=== PATIENT | female | born 1935 | race Caucasian/White ===

== ENCOUNTER 2019-12-04 18:31 | Inpatient (IN) | payer MEDICARE, SELFPAY ==
--- NOTE | ~2019-12-04 | XR_ITS ---
XR chest 1V portable 12/04/2019 20:36 Indication: Altered mental status. Hypertension. COPD. Procedure: AP view of the chest Comparison: Comparison to multiple prior studies sequentially, with oldest reviewed study dated 04/29. Findings: There is a left shoulder arthroplasty. There are coarse interstitial changes of the lung ba ses. Heart size normal. Chronic left apical pleural thickening. No acute osseous abnormality. No acut e focal pneumonia, edema, pleural effusion or pneumothorax. Partially visualized IVC filter. Impression: 1: Chronic interstitial changes of the lung bases, likely interstitial fibrosis. 2: No acute cardiopulmonary disease. Reviewed, dictated and finalized at location A. Impression: 1: Chronic interstitial changes of the lung bases, likely interstitial fibrosis . 2: No acute cardiopulmonary disease.
--- NOTE | ~2019-12-04 | CT_ITS ---
EXAMINATION: CT brain wo con DATE: 12/04/2019 20:30 INDICATION: Altered mental status TECHNIQUE: Computed tomography (CT) of the head was performed without intravenous contrast. The dose- length product was 605.33 mGy-cm. Automated exposure control and iterative reconstruction technique w ere employed. COMPARISON: CT dated 01/02/2019 FINDINGS: Generalized atrophy. There is chronic right lacunar infarction of the caudate nucleus. Supervisor Painting nadia lacunar infarction of the left lentiform nucleus. There are scattered moderate periventricular an d subcortical white matter changes, most likely related to small vessel ischemic disease (microangiop athy). There is intracranial atherosclerosis. Paranasal sinuses and mastoids are pneumatized. No depr essed skull fractures. Midline sagittal images are unremarkable. IMPRESSION: 1. No acute intracranial abnormality. 2: Chronic bilateral lacunar infarctions. 3: Chronic age-related findings. Reviewed, dictated and finalized at location A.
[2019-12-04 18:13] VITALS: BP 178/88; PULSE 63; RESP 20; TEMP 36.8; O2SAT 99
--- NOTE | 2019-12-04 18:18 | ECG_ITS ---
Measurements Intervals [place] Rate: 63 P: -11 PA: 165 QRS: -62 QRSD: 162 T: 121 QT: 435 QTc: 447 Interpretive Statements SINUS RHYTHM LEFT BUNDLE BRANCH BLOCK BASELINE ARTIFACT- I, II, III, AVR, AVL, AVF, V1 ABNORMAL ECG Electronically Signed On 12-05-2019 7:20:20 CDT by Uriah Richard D.O.
[2019-12-04 18:51] LABS: Basophils Absolute Auto 0.1 K/mm3 (0.0-0.1); Basophils Percent Auto 0.9 % (0.2-1.2); Eosinophils Absolute Auto 0.3 K/mm3 (0-0.3); Eosinophils Percent Auto 3.4 % (0-4.4); Hemoglobin 14.5 g/dL (12.0-15.0); Immature Granulocyte Absolute 0.02 K/mm3 (0.00-0.031); Immature Granulocyte Percent A 0.2 % (0-0.5); Lymphocytes Absolute Auto 1.86 K/mm3 (0.9-3.2); Lymphocytes Percent Auto 20.9 % (18.3-44.2); Mean Corpuscular HGB Conc 33.7 g/dl (32-36); Mean Corpuscular Hemoglobin 32.9 pg (26-34); Mean Corpuscular Volume 97.5 fl (80-100); Mean Platelet Volume 10.7 fl (7.4-10.4); Monocytes Absolute Auto 0.8 K/mm3 (0.1-0.6); Monocytes Percent Auto 8.7 % (2.6-8.5); Neutrophils Absolute Auto 5.9 K/mm3 (1.3-6.7); Neutrophils Percent Auto 65.9 % (45.5-73.1); Platelet Count Result 292 k/mm3 (150-375); Red Blood Count 4.41 M/mm3 (4.2-5.4); White Blood Count 8.9 K/mm3 (4.5-10.0)
[2019-12-04 18:57] LABS: Add Urine Microscopic? YES; Appearance Urine Cloudy (Clear); Bacteria Urine 2+ /hpf; Bilirubin Urine Negative (Negative); Color Urine Yellow (Yellow); Glucose Urine UA Negative (Negative); Ketones Urine Negative (Negative); Leukocyte Esterase Ur 3+ LEU/UL (Negative); Mucus Urine Rare /lpf; Nitrate Urine Negative (Negative); Protein Urine 1+ mg/dL (Negative); Specific Grav Ur 1.013 (1.001-1.035); Squamous Epithelial Cell Urine Rare /hpf (Few); Urobilinogen Urine Negative mg/dL (<2.0); WBC Clumps Urine Present /HPF; WBC Urine >75 /hpf
[2019-12-04 18:58] LABS: Blood Urine Negative (Negative)
--- NOTE | 2019-12-04 19:21 | ED.AMS ---
HPI - Altered Mental Status General Chief Complaint: Altered Mental Status Stated Complaint: AMS/POSSIBLE UTI Time Seen by Provider: 12/04/19 19:08 Source: RN notes reviewed History of Present Illness HPI narrative: Patient presents emergency department from [facility] via EMS for altered mental status. Per the staff the patient does have baseline confusion but is been more confused today as well as combative with the staff. Patient currently sitting in bed stating that she does not want to answer questions but denies any complaints of pain at this time. Per staff patient with no fevers. Patient denies chest pain shortness of breath abdominal pain or nausea vomiting Related Data Allergies Allergy/AdvReac Type Severity Reaction Status Date / Time Sulfa (Sulfonamide Allergy Unknown Verified 05/10/17 07:50 Antibiotics) ADENOSINE Allergy Severe FLUSHED, Uncoded 09/04/17 18:14 SOB, N/V FEELING DURING STRESS TEST Review of Systems Review of Systems: Narrative: Gen.: Denies fevers or chills ENT: Denies congestion Respiratory: Denies shortness of breath or cough CV: Denies chest pain GI: Denies abdominal pain nausea, emesis or diarrhea Musculoskeletal: Denies back pain or muscle pain Neuro: See HPI Skin: Denies rash Except as documented, all other systems reviewed and negative PMFSH Past Medical History Medical History (Updated 12/04/19 @ 20:50 by Brad Alexander DO) COPD (chronic obstructive pulmonary disease) HTN (hypertension) Social History Social History (Updated 12/04/19 @ 19:22 by Brad Alexander DO) Smoking status: Former smoker Alcohol intake: never Gender identity (if verbalized by the patient): Female Exam Narrative: Exam Narrative: APPEARANCE: No acute distress, nontoxic, resting in bed EYES: EOMI, Jerod HEENT: Normocephalic, atraumatic, OMM RESPIRATORY: No respiratory distress Clear to auscultation bilaterally with no rhonchi wheezing or rales. CARDIOVASCULAR: Regular rate and rhythm without murmurs rubs or gallops. ABDOMINAL: Soft, nontender, nondistended, no rebound or guarding MUSCULOSKELETAl: Moves all extremities. No clubbing, cyanosis or edema. NEURO: Awake and alertx 1. Following commands, speech normal, no focal deficits SKIN:: Warm, dry. No rashes lesions or abrasions PSYCHIATRIC: Normal affect/mood, Course Course Emergency Course: Discussed with Dr. Hammond presentation work-up he agrees with admission at this time Discussed with patient and family results of workup and diagnosis. Discussed need for admission. Patient and family understand and agree to current treatment plan Vital Signs Vital signs: Vital Signs Temperature 98.2 F 12/04/19 18:13 Pulse Rate 63 12/04/19 18:13 Respiratory Rate 20 12/04/19 18:13 Blood Pressure 178/88 H 12/04/19 18:13 Pulse Oximetry 99 12/04/19 18:13 Temperature 98.2 F 12/04/19 18:13 Pulse Rate 63 12/04/19 18:13 Respiratory Rate 12/04/19 18:13 Blood Pressure 178/88 H 12/04/19 18:13 Pulse Oximetry 99 12/04/19 18:13 MDM - Altered Mental Status Lab Data Result diagrams: 12/04/19 18:44 12/04/19 19:27 Labs: Lab Results 12/04/19 12/04/19 12/04/19 Range/Units 18:44 18:45 19:27 WBC 8.9 (4.5-10.0) K/mm3 RBC 4.41 (4.2-5.4) M/mm3 Hgb 14.5 (12.0-15.0) g/dL Hct 43.0 (37.0-47.0) % MCV 97.5 (80-100) fl MCH 32.9 (26-34) pg MCHC 33.7 (32-36) g/dl RDW 14.0 (11.5-14.5) % Plt Count 292 (150-375) k/mm3 MPV 10.7 H (7.4-10.4) fl Immature Gran % (Auto) 0.2 (0-0.5) % Neut % (Auto) 65.9 (45.5-73.1) % Lymph % (Auto) 20.9 (18.3-44.2) % Wheeler % (Auto) 8.7 H (2.6-8.5) % Eos % (Auto) 3.4 (0-4.4) % Baso % (Auto) 0.9 (0.2-1.2) % Lymph # (Auto) 1.86 (0.9-3.2) K/mm3 Wheeler # (Auto) 0.8 H (0.1-0.6) K/mm3 Eos # (Auto) 0.3 (0-0.3) K/mm3 Baso # (Auto) 0.1 (0.0-0.1) K/mm3 Abs Immat Gran (
[2019-12-04 19:44] LABS: INR 2.5; Prothrombin Time 26.7 Seconds (11.1-14.7)
[2019-12-04 19:45] LABS: Lactic Acid Reflex 0.8 mmol/L (0.7-2.1); Partial Thromboplastin Time 59.1 SECONDS (22.3-36.8)
[2019-12-04 19:46] LABS: Blood Urea Nitrogen 17 mg/dL (7-17); Calcium 9.1 mg/dL (8.4-10.2); Carbon Dioxide 27 mmol/L (22-30); Chloride 103 mmol/L (98-107); Estimated Glomerular Filt Rate > 60; Glucose 94 mg/dL (65-105); Potassium 4.2 mmol/L (3.4-5.0); Sodium 136 mmol/L (137-145)
[2019-12-04 21:40] VITALS: BP 105/75; PULSE 65; RESP 20; TEMP 36.6; O2SAT 90; BMI 18.7
--- NOTE | 2019-12-04 21:40 | ADMGEN ---
This patient, Kinjal Anderson, was admitted to [facility] Surg Room 315-01. Patient/family oriented to hospital policies and general routines including ID bracelet, bed and alarms, visiting hours, pain management, procedures, bathroom and other care routines, personal items, smoking policy, room service/diet, and visiting hours. Valuables list has been completed. Information on how to activate the Rapid Response Team has been discussed. Patient/Family are encouraged to report perceived risks to care and to ask questions if they do not understand what they are told or what they should do.
[2019-12-04 21:58] VITALS: BP 107/68; PULSE 71; RESP 22; O2SAT 96
--- NOTE | 2019-12-04 21:58 | PM.IMHP ---
H&P: HPI History of Present Illness Chief complaint: UTI, metabolic encephalopathy Narrative: This is an 84 year old demented female who presented to the hospital from [facility] secondary to acute altered mental status and combative behavior. The patient was found to be more confused than normal by halfway staff and combative. On arrival to the hospital the patient was found to have an abnormal urinalysis although she denies any urinary symptoms. She is oriented to herself and place and states she does not want to answer any questions. The patient denies any pain but refuses to answer any other questions. No other history is obtainable from the patient. Review of Systems Review of Systems: All systems reviewed & are unremarkable except as noted in HPI and below PMFSH Past Medical History Medical History COPD (chronic obstructive pulmonary disease) HTN (hypertension) Hypothyroidism Family History Family History Other Unknown family medical history Social History Social History Smoking status: Unknown if ever smoked Alcohol intake: unknown Substance use: unknown Gender identity (if verbalized by the patient): Female Spiritual care concerns: No Comments Past surgical history is unknown. Meds Home Medications and Allergies Home Medications Medication Instructions Recorded Confirmed Type Lactobacillus acidoph-L.bulgar 1 tablet PO DAILY 12/04/19 12/05/19 History [Floranex] acetaminophen [Tylenol] 650 mg PO Q4H PRN 12/04/19 12/05/19 History atorvastatin 40 mg PO QPM 12/04/19 12/05/19 History fluoxetine 20 mg PO DAILY 12/04/19 12/05/19 History lorazepam 0.5 mg PO BID 12/04/19 12/05/19 History ciprofloxacin HCl [Cipro] 250 mg PO DAILY 12/05/19 12/05/19 History ferrous sulfate [Iron (ferrous 325 mg PO DAILY 12/05/19 12/05/19 History sulfate)] levothyroxine 125 mcg PO DAILY 12/05/19 12/05/19 History loperamide 2 mg PO PRN PRN 12/05/19 12/05/19 History magnesium hydroxide [Milk of 30 ml PO BID PRN 12/05/19 12/05/19 History Magnesia] meclizine 25 mg PO TID 12/05/19 12/05/19 History metoprolol tartrate 25 mg PO BID 12/05/19 12/05/19 History multivitamin,fv-daia-udmrunww 1 tablet PO DAILY 12/05/19 12/05/19 History ofloxacin 1 - 2 drp OPHTHALMIC (EYE) QID 12/05/19 12/05/19 History pantoprazole 40 mg PO DAILY 12/05/19 12/05/19 History rivaroxaban [Xarelto] 20 mg PO DAILY 12/05/19 12/05/19 History Allergies Allergy/AdvReac Type Severity Reaction Status Date / Time adenosine Allergy Severe Dyspnea / Verified 12/05/19 01:02 SOB Sulfa (Sulfonamide Allergy Unknown Unknown Verified 12/05/19 01:02 Antibiotics) Vital Signs Vital Signs - 24 hr 12/04/19 18:13 Temperature 36.8 C Pulse Rate 63 Respiratory Rate 20 Blood Pressure 178/88 H Pulse Oximetry 99 Exam Const: General: no acute distress, alert and awake Nutritional Appearance: well nourished Orientation/consciousness: oriented to person and oriented to place HENMT: Head: normal to inspection General nose exam: Normal external nose present Face and sinus: normal facial exam Mouth: Yes Normal oral and palatal mucosa present and Yes oropharynx normal Eyes: Pupils: Equal, round and reactive pupils present EOM: EOMs intact bilaterally Neck: Neck: supple and no JVD Thyroid: thyroid normal Lymphatic: lymphadenopathy not noted Resp: Effort & Inspection: normal respiratory effort Auscultation: clear to auscultation bilaterally Cardio: Rate: regular rate Rhythm: regular rhythm Heart sounds: Murmur heart sound present systolic GI: Inspection: normal to inspection Auscultation: normal bowel sounds Skin: General skin exam: normal color and no rashes or lesions noted Neuro: General: oriented to person and oriented to place Cranial nerves: Yes
[2019-12-04] MEDS: SODIUM CHLORIDE 0.9% IV 1,000 ML 80 ML IV CONT (23:06)
--- NOTE | 2019-12-05 04:55 | PC.NURSE ---
[id number] Attempted to perform an assessment but the patient refused. Patient called staff names and was combative when we would got closer to her.
[2019-12-05] MEDS: LEVOTHYROXINE SODIUM 125 MCG TABLET PO (05:58)
[2019-12-05 06:55] LABS: Basophils Absolute Auto 0.1 K/mm3 (0.0-0.1); Basophils Percent Auto 0.9 % (0.2-1.2); Eosinophils Absolute Auto 0.3 K/mm3 (0-0.3); Eosinophils Percent Auto 4.2 % (0-4.4); Hematocrit 41.1 % (37.0-47.0); Hemoglobin 13.5 g/dL (12.0-15.0); Immature Granulocyte Absolute 0.02 K/mm3 (0.00-0.031); Immature Granulocyte Percent A 0.3 % (0-0.5); Lymphocytes Absolute Auto 1.18 K/mm3 (0.9-3.2); Lymphocytes Percent Auto 17.1 % (18.3-44.2); Mean Corpuscular HGB Conc 32.8 g/dl (32-36); Mean Corpuscular Hemoglobin 32.6 pg (26-34); Mean Corpuscular Volume 99.3 fl (80-100); Mean Platelet Volume 10.3 fl (7.4-10.4); Monocytes Absolute Auto 0.6 K/mm3 (0.1-0.6); Neutrophils Absolute Auto 4.8 K/mm3 (1.3-6.7); Neutrophils Percent Auto 69.5 % (45.5-73.1); Platelet Count Result 247 k/mm3 (150-375); Red Blood Count 4.14 M/mm3 (4.2-5.4); Red Cell Distribution Width 13.6 % (11.5-14.5); White Blood Count 6.9 K/mm3 (4.5-10.0)
[2019-12-05 07:06] LABS: Blood Urea Nitrogen 15 mg/dL (7-17); Calcium 8.7 mg/dL (8.4-10.2); Carbon Dioxide 24 mmol/L (22-30); Chloride 106 mmol/L (98-107); Estimated CRCL calculation 49 ml/min; Estimated Glomerular Filt Rate > 60; Glucose 90 mg/dL (65-105); Potassium 3.9 mmol/L (3.4-5.0); Sodium 136 mmol/L (137-145)
[2019-12-05 08:14] LABS: Folic Acid > 20.0 ng/mL (2.76->20)
[2019-12-05] MEDS: OLANZapine 10 MG INJ VIAL 2.5 MG IM ×2 (11:18→17:27)
[2019-12-05] MEDS: LORazepam 0.5 MG TABLET PO (13:29)
[2019-12-05] MEDS: WATER, STERILE FOR INJECTION 10 ML VIAL XX ×2 (13:30→17:28)
[2019-12-05 14:00] VITALS: BP 165/87; PULSE 84; RESP 18; TEMP 37.2; O2SAT 94
[2019-12-05] MEDS: FLUoxetine HCL 20 MG CAPSULE PO (15:10)
[2019-12-05] MEDS: ACETAMINOPHEN 325 MG TABLET 650 MG PO (15:20)
--- NOTE | 2019-12-05 16:07 | PM.IMPN ---
Progress Note: A&P Assessment and Plan (1) Encephalopathy acute: Code(s): G93.40 - Encephalopathy, unspecified Status: Acute Assessment and Plan: 12/05/19 16:07 Patient 84-year-old female a resident of nursing with baseline dementia apparently patient was agitated combative and more confused was sent to emergency department for further evaluation patient still is quite confused uncooperative does not provide any history, does not want to be examined, and been aggressive. Patient is found to UTI this may have worsen of her confusion and agitation, patient started Rocephin will continue and follow on urine culture and sensitivity, once patient is clinically stable cooperative will have a PT OT evaluate the patient, currently patient is with sitter (2) Acute UTI: Code(s): N39.0 - Urinary tract infection, site not specified Status: Acute Assessment and Plan: Will start the patient on Rocephin will follow-up on urine culture and sensitivity (3) COPD (chronic obstructive pulmonary disease): Qualifiers: COPD type: unspecified COPD Qualified Code(s): J44.9 - Chronic obstructive pulmonary disease, unspecified Code(s): J44.9 - Chronic obstructive pulmonary disease, unspecified Status: Chronic Assessment and Plan: Clinically stable will continue home regimen Subjective Date/time seen: 12/05/19 16:07 Patient 84-year-old female a resident of nursing with baseline dementia apparently patient was agitated combative and more confused was sent to emergency department for further evaluation patient still is quite confused uncooperative does not provide any history, does not want to be examined, and been aggressive. Patient is found to UTI this may have worsen of her confusion and agitation, patient started Rocephin will continue and follow on urine culture and sensitivity, once patient is clinically stable cooperative will have a PT OT evaluate the patient, currently patient is with sitter Review of Systems Review of Systems: ROS unobtainable: Yes unobtainable due to medical condition Exam Narrative: Exam Narrative: Patient is not very cooperative Const: General: no acute distress and uncomfortable HENMT: General nose exam: Normal nares present Eyes: Sclera: sclerae normal Neck: Other: There is no retraction Resp: Effort & Inspection: normal respiratory effort GI: Other: Not distended Skin: General skin exam: normal color Neuro: Other: Patient is confused and combative Extrem: General: normal to inspection Psych: Affect: Hostile affect present Attitude: Belligerent attititude/behavior present Objective Data Vital Signs Vital Signs: Vital Signs - 24 hr 12/04/19 18:13 12/04/19 21:40 12/04/19 21:58 Temperature 98.2 F 97.8 F Pulse Rate 63 65 71 Respiratory Rate 20 20 22 H Blood Pressure 178/88 H 105/75 107/68 Pulse Oximetry 99 90 96 12/05/19 14:00 Temperature 99.0 F Pulse Rate 84 Respiratory Rate 18 Blood Pressure 165/87 H Pulse Oximetry 94 Intake/Output Intake/Output: Intake & Output 12/02/19 12/03/19 12/04/19 12/05/19 23:59 23:59 23:59 23:59 Intake Total 50 Balance 50 Meds/Results Medications: Active Medications Generic Name Dose Route Start Last Admin Trade Name Freq PRN Reason Stop Dose Admin Acetaminophen 650 mg 12/05/19 14:58 12/05/19 15:20 Tylenol Tablet PO 650 mg Q6H PRN Administration Mild Pain (1-3) or Fever Atorvastatin Calcium 40 mg 12/04/19 22:20 12/05/19 03:11 Lipitor PO Not Given HS WILLIAM Fluoxetine HCl 20 mg 12/05/19 09:00 12/05/19 15:10 Prozac PO 20 mg DAILY WILLIAM Administration Ceftriaxone Sodium/Dextrose 1 gm in 50 mls @ 100 mls/hr 12/05/19 21:00 Rocephin 1 Gm/D5w 50 Ml IVPB Q24H WILLIAM Sodium Chloride 1,000 mls @ 80 mls/hr 12/04/19 20:50 12/05/19 13:31 Normal Saline Iv IV CONT Not Given .[id number] WILLIAM Lactobacillus Acidophilus 1 tabl
[2019-12-05 20:30] VITALS: PULSE 83; RESP 18; O2SAT 92
[2019-12-05 22:00] VITALS: BP 157/98; PULSE 83; RESP 18; TEMP 37.1; O2SAT 92
[2019-12-06 06:00] VITALS: BP 171/88; PULSE 84; RESP 18; TEMP 37.2; O2SAT 91
[2019-12-06] MEDS: LEVOTHYROXINE SODIUM 125 MCG TABLET PO (06:13)
[2019-12-06 06:29] LABS: Hematocrit 40.4 % (37.0-47.0); Hemoglobin 13.2 g/dL (12.0-15.0); Mean Corpuscular HGB Conc 32.7 g/dl (32-36); Mean Corpuscular Volume 98.1 fl (80-100); Mean Platelet Volume 10.3 fl (7.4-10.4); Platelet Count Result 265 k/mm3 (150-375); Red Blood Count 4.12 M/mm3 (4.2-5.4); Red Cell Distribution Width 13.5 % (11.5-14.5); White Blood Count 7.2 K/mm3 (4.5-10.0)
[2019-12-06 06:40] LABS: Blood Urea Nitrogen 14 mg/dL (7-17); Calcium 9.1 mg/dL (8.4-10.2); Carbon Dioxide 25 mmol/L (22-30); Chloride 107 mmol/L (98-107); Estimated CRCL calculation 49 ml/min; Estimated Glomerular Filt Rate > 60; Glucose 84 mg/dL (65-105); Potassium 3.7 mmol/L (3.4-5.0); Sodium 138 mmol/L (137-145)
[2019-12-06] MEDS: LORazepam 0.5 MG TABLET PO ×3 (07:53→19:40)
[2019-12-06] MEDS: FLUoxetine HCL 20 MG CAPSULE PO (07:54)
[2019-12-06] MEDS: ACIDOPHILUS/BULGARICUS CHEWABLE TABLET 1 TABLET PO (07:54)
[2019-12-06] MEDS: FERROUS SULFATE 324 MG TABLET PO (07:54)
[2019-12-06 07:55] VITALS: PULSE 84
[2019-12-06] MEDS: METOPROLOL TARTRATE 25 MG TABLET PO ×2 (07:55→21:18)
[2019-12-06] MEDS: PANTOPRAZOLE 40 MG TABLET PO (07:55)
[2019-12-06] MEDS: RIVAROXABAN 20 MG TABLET PO (07:55)
[2019-12-06] MEDS: THERAPEUTIC MULTIVITAMINS/MINERALS TAB (*BKC) 1 TABLET PO (07:55)
[2019-12-06] MEDS: SODIUM CHLORIDE 0.9% IV 1,000 ML 80 ML IV CONT ×2 (09:53→23:25)
[2019-12-06] MEDS: ACETAMINOPHEN 325 MG TABLET 650 MG PO (13:37)
[2019-12-06 13:49] LABS: SARS-CoV-2 RNA PCR Negative
[2019-12-06 14:00] VITALS: BP 163/77; PULSE 68; RESP 20; TEMP 37.4; O2SAT 98
--- NOTE | 2019-12-06 16:33 | PM.IMPN ---
Progress Note: A&P Assessment and Plan (1) Encephalopathy acute: Code(s): G93.40 - Encephalopathy, unspecified Status: Acute Assessment and Plan: 12/06/19 16:33 Patient 84-year-old female a resident of nursing with baseline dementia apparently patient was agitated combative and more confused was sent to emergency department for further evaluation patient still is quite confused uncooperative does not provide any history, does not want to be examined, and been aggressive. Patient is found to UTI this may have worsen of her confusion and agitation, patient was started on Rocephin, urine culture is growing E coli sensitive to Rocephin will continue, still is quite agitated uncooperative and does not want to be examined. (2) Acute UTI: Code(s): N39.0 - Urinary tract infection, site not specified Status: Acute Assessment and Plan: Will start the patient on Rocephin will follow-up on urine culture and sensitivity plan is above (3) COPD (chronic obstructive pulmonary disease): Qualifiers: COPD type: unspecified COPD Qualified Code(s): J44.9 - Chronic obstructive pulmonary disease, unspecified Code(s): J44.9 - Chronic obstructive pulmonary disease, unspecified Status: Chronic Assessment and Plan: Clinically stable will continue home regimen Subjective Date/time seen: 12/06/19 16:33 Patient 84-year-old female a resident of nursing with baseline dementia apparently patient was agitated combative and more confused was sent to emergency department for further evaluation patient still is quite confused uncooperative does not provide any history, does not want to be examined, and been aggressive. Patient is found to UTI this may have worsen of her confusion and agitation, patient was started on Rocephin, urine culture is growing E coli sensitive to Rocephin will continue, still is quite agitated uncooperative and does not want to be examined. Review of Systems Review of Systems: ROS unobtainable: Yes unobtainable due to medical condition Exam Narrative: Exam Narrative: Elderly frail Const: General: no acute distress and uncomfortable HENMT: General nose exam: Normal nares present Eyes: Sclera: sclerae normal Neck: Other: No retraction Resp: Effort & Inspection: normal respiratory effort GI: Other: Not distended Skin: General skin exam: normal color Neuro: Other: Patient is quite confused and agitated Extrem: General: normal to inspection Psych: Affect: Hostile affect present Attitude: Belligerent attititude/behavior present Objective Data Vital Signs Vital Signs: Vital Signs - 24 hr 12/05/19 20:30 12/05/19 22:00 12/06/19 06:00 Temperature 98.7 F 98.9 F Pulse Rate 83 83 84 Respiratory Rate 18 18 18 Blood Pressure 157/98 H 171/88 H Pulse Oximetry 92 92 91 12/06/19 07:55 12/06/19 14:00 Temperature 99.4 F Pulse Rate 84 68 Respiratory Rate 20 Blood Pressure 163/77 H Pulse Oximetry 98 Intake/Output Intake/Output: Intake & Output 12/03/19 12/04/19 12/05/19 12/06/19 23:59 23:59 23:59 23:59 Intake Total 50 1250 290 Output Total 1100 350 Balance 50 150 -60 Meds/Results Medications: Active Medications Generic Name Dose Route Start Last Admin Trade Name Freq PRN Reason Stop Dose Admin Acetaminophen 650 mg 12/05/19 14:58 12/06/19 13:37 Tylenol Tablet PO 650 mg Q6H PRN Administration Mild Pain (1-3) or Fever Atorvastatin Calcium 40 mg 12/04/19 22:20 12/06/19 07:24 Lipitor PO Not Given HS WILLIAM Ferrous Sulfate 324 mg 12/06/19 09:00 12/06/19 07:54 Ferrous Sulfate PO 324 mg DAILY WILLIAM Administration Fluoxetine HCl 20 mg 12/05/19 09:00 12/06/19 07:54 Prozac PO 20 mg DAILY WILLIAM Administration Ceftriaxone Sodium/Dextrose 1 gm in 50 mls @ 100 mls/hr 12/05/19 21:00 12/06/19 07:24 Rocephin 1 Gm/D5w 50 Ml IVPB Not Given Q24H WILLIAM Sodium Chloride 1,000 mls @ 80 m
[2019-12-06 21:18] VITALS: PULSE 64
[2019-12-06] MEDS: ATORVASTATIN 40 MG TABLET PO (21:18)
[2019-12-07 06:00] VITALS: BP 160/78; PULSE 73; RESP 18; TEMP 36.4; O2SAT 93
[2019-12-07] MEDS: LEVOTHYROXINE SODIUM 125 MCG TABLET PO (06:08)
[2019-12-07 14:00] VITALS: BP 148/95; PULSE 65; RESP 18; TEMP 36.7; O2SAT 94
[2019-12-07] MEDS: LORazepam 0.5 MG TABLET PO ×2 (14:24→20:08)
[2019-12-07] MEDS: ACETAMINOPHEN 325 MG TABLET 650 MG PO (14:24)
[2019-12-07 14:26] LABS: Hematocrit 30.4 % (37.0-47.0); Mean Corpuscular HGB Conc 29.6 g/dl (32-36); Mean Corpuscular Hemoglobin 32.8 pg (26-34); Mean Corpuscular Volume 110.9 fl (80-100); Mean Platelet Volume 10.7 fl (7.4-10.4); Platelet Count Result 172 k/mm3 (150-375); Red Blood Count 2.74 M/mm3 (4.2-5.4); Red Cell Distribution Width 13.8 % (11.5-14.5); White Blood Count 5.3 K/mm3 (4.5-10.0)
[2019-12-07] MEDS: ACIDOPHILUS/BULGARICUS CHEWABLE TABLET 1 TABLET PO (14:26)
[2019-12-07] MEDS: FLUoxetine HCL 20 MG CAPSULE PO (14:27)
[2019-12-07] MEDS: MECLIZINE HCL 25 MG TABLET PO (14:28)
[2019-12-07] MEDS: SODIUM CHLORIDE 0.9% IV 1,000 ML 80 ML IV CONT (14:45)
--- NOTE | 2019-12-07 16:40 | PM.IMPN ---
Progress Note: A&P Assessment and Plan (1) Encephalopathy acute: Code(s): G93.40 - Encephalopathy, unspecified Status: Acute Assessment and Plan: 12/07/19 16:40 Patient 84-year-old female a resident of nursing with baseline dementia apparently patient was agitated combative and more confused was sent to emergency department for further evaluation patient still is quite confused uncooperative does not provide any history, does not want to be examined, and been aggressive. Patient is found to UTI this may have worsen of her confusion and agitation, patient was started on Rocephin, urine culture is growing E coli sensitive to Rocephin will continue, still is quite agitated uncooperative and does not want to be examined. If her symptoms do not able by Monday family may consider comfort care for the patient (2) Acute UTI: Code(s): N39.0 - Urinary tract infection, site not specified Status: Acute Assessment and Plan: Will start the patient on Rocephin will follow-up on urine culture and sensitivity plan is above (3) COPD (chronic obstructive pulmonary disease): Qualifiers: COPD type: unspecified COPD Qualified Code(s): J44.9 - Chronic obstructive pulmonary disease, unspecified Code(s): J44.9 - Chronic obstructive pulmonary disease, unspecified Status: Chronic Assessment and Plan: Clinically stable will continue home regimen Subjective Date/time seen: 12/07/19 16:40 Patient 84-year-old female a resident of nursing with baseline dementia apparently patient was agitated combative and more confused was sent to emergency department for further evaluation patient still is quite confused uncooperative does not provide any history, does not want to be examined, and been aggressive. Patient is found to UTI this may have worsen of her confusion and agitation, patient was started on Rocephin, urine culture is growing E coli sensitive to Rocephin will continue, still is quite agitated uncooperative and does not want to be examined. If her symptoms do not able by Monday family may consider comfort care for the patient Review of Systems Review of Systems: All systems reviewed & are unremarkable except as noted in HPI and below Exam Narrative: Exam Narrative: Patient refused to be examined Const: General: no acute distress and uncomfortable HENMT: General nose exam: Normal nares present Eyes: General: appearance normal, both eyes and all related structures Sclera: sclerae normal Neck: Other: No retraction Resp: Effort & Inspection: normal respiratory effort GI: Other: Not distended Skin: General skin exam: normal color Neuro: Other: Patient is quite confused Extrem: General: normal to inspection Psych: Affect: Hostile affect present Attitude: Belligerent attititude/behavior present Objective Data Vital Signs Vital Signs: Vital Signs - 24 hr 12/06/19 21:18 12/07/19 06:00 12/07/19 14:00 Temperature 97.5 F L 98.1 F Pulse Rate 64 73 65 Respiratory Rate 18 18 Blood Pressure 160/78 H 148/95 H Pulse Oximetry 93 94 Intake/Output Intake/Output: Intake & Output 12/04/19 12/05/19 12/06/19 12/07/19 23:59 23:59 23:59 23:59 Intake Total 50 1250 1340 1200 Output Total 1100 350 550 Balance 50 150 990 650 Meds/Results Medications: Active Medications Generic Name Dose Route Start Last Admin Trade Name Freq PRN Reason Stop Dose Admin Acetaminophen 650 mg 12/05/19 14:58 12/07/19 14:24 Tylenol Tablet PO 650 mg Q6H PRN Administration Mild Pain (1-3) or Fever Atorvastatin Calcium 40 mg 12/04/19 22:20 12/06/19 21:18 Lipitor PO 40 mg HS WILLIAM Administration Ferrous Sulfate 324 mg 12/06/19 09:00 12/06/19 07:54 Ferrous Sulfate PO 324 mg DAILY WILLIAM Administration Fluoxetine HCl 20 mg 12/05/19 09:00 12/07/19 14:27 Prozac PO 20 mg DAILY WILLIAM Administration Ceftriaxone Sodium/Dextrose 1 gm in 50 mls @
[2019-12-07 18:11] LABS: Blood Urea Nitrogen 17 mg/dL (7-17); Calcium 8.3 mg/dL (8.4-10.2); Carbon Dioxide 21 mmol/L (22-30); Chloride 108 mmol/L (98-107); Estimated CRCL calculation 49 ml/min; Estimated Glomerular Filt Rate > 60; Glucose 103 mg/dL (65-105); Sodium 140 mmol/L (137-145)
[2019-12-07] MEDS: RIVAROXABAN 20 MG TABLET PO (18:18)
--- NOTE | 2019-12-07 18:58 | PC.NURSE ---
Pt's family states that Jany is the closest daughter and is the one we should contact at [phone]. She will disseminate the info. She is the medical POA. The daughter Alice is out of state and is the financial POA.
--- NOTE | 2019-12-07 19:27 | PC.NURSE ---
When pt awoke, she was combative as she has been during her stay with us. However, she started stating that she wanted to , to stop messing with her, to leave her alone to let her , etc. These statements have continued over the last three hours. MD aware. Pt has sitter with her each shift. Will continue to monitor.
[2019-12-07 20:06] VITALS: PULSE 58
[2019-12-07] MEDS: METOPROLOL TARTRATE 25 MG TABLET PO (20:06)
[2019-12-07] MEDS: ATORVASTATIN 40 MG TABLET PO (20:08)
[2019-12-07 22:00] VITALS: BP 136/51; PULSE 58; RESP 18; TEMP 36.4; O2SAT 91
[2019-12-08] MEDS: SODIUM CHLORIDE 0.9% IV 1,000 ML 80 ML IV CONT ×2 (02:30→14:34)
[2019-12-08 06:00] VITALS: BP 153/68; PULSE 56; RESP 18; TEMP 36.9; O2SAT 95
[2019-12-08] MEDS: LEVOTHYROXINE SODIUM 125 MCG TABLET PO (06:40)
[2019-12-08 06:43] LABS: Hematocrit 39.5 % (37.0-47.0); Hemoglobin 12.9 g/dL (12.0-15.0); Mean Corpuscular HGB Conc 32.7 g/dl (32-36); Mean Corpuscular Hemoglobin 32.3 pg (26-34); Mean Corpuscular Volume 98.8 fl (80-100); Mean Platelet Volume 9.7 fl (7.4-10.4); Platelet Count Result 237 k/mm3 (150-375); Red Cell Distribution Width 13.6 % (11.5-14.5); White Blood Count 7.6 K/mm3 (4.5-10.0)
[2019-12-08 07:02] LABS: Blood Urea Nitrogen 13 mg/dL (7-17); Carbon Dioxide 18 mmol/L (22-30); Chloride 113 mmol/L (98-107); Estimated CRCL calculation 49 ml/min; Estimated Glomerular Filt Rate > 60; Glucose 94 mg/dL (65-105); Potassium 3.5 mmol/L (3.4-5.0); Sodium 138 mmol/L (137-145)
[2019-12-08] MEDS: POTASSIUM CHLORIDE 20 MEQ TABLET 40 MEQ PO (09:46)
[2019-12-08] MEDS: ACIDOPHILUS/BULGARICUS CHEWABLE TABLET 1 TABLET PO (09:47)
[2019-12-08] MEDS: FERROUS SULFATE 324 MG TABLET PO (09:47)
[2019-12-08] MEDS: FLUoxetine HCL 20 MG CAPSULE PO (09:47)
[2019-12-08 09:48] VITALS: PULSE 77
[2019-12-08] MEDS: METOPROLOL TARTRATE 25 MG TABLET PO ×2 (09:48→21:00)
[2019-12-08] MEDS: PANTOPRAZOLE 40 MG TABLET PO (10:08)
[2019-12-08] MEDS: OFLOXACIN 0.3% OP SOLN 5 ML BTL EACH EYE ×4 (10:08→21:35)
[2019-12-08] MEDS: THERAPEUTIC MULTIVITAMINS/MINERALS TAB (*BKC) 1 TABLET PO (10:08)
[2019-12-08 14:00] VITALS: BP 154/72; PULSE 67; RESP 24; TEMP 36.8; O2SAT 96
--- NOTE | 2019-12-08 14:12 | PM.IMPN ---
Progress Note: A&P Assessment and Plan (1) Encephalopathy acute: Code(s): G93.40 - Encephalopathy, unspecified Status: Acute Assessment and Plan: 12/08/19 14:12 Patient 84-year-old female a resident of nursing with baseline dementia apparently patient was agitated combative and more confused was sent to emergency department for further evaluation patient still is quite confused uncooperative does not provide any history, does not want to be examined, and been aggressive. Patient is found to UTI this may have worsen of her confusion and agitation, patient was started on Rocephin, urine culture is growing E coli sensitive to Rocephin will continue, today still is quite agitated and uncooperative but answers few questions, now agreeable to brief exam, denies any abdominal pain nausea or vomiting fever or chills. If her symptoms do not improve by Monday family may consider comfort care for the patient (2) Acute UTI: Code(s): N39.0 - Urinary tract infection, site not specified Status: Acute Assessment and Plan: Will start the patient on Rocephin will follow-up on urine culture and sensitivity plan is above (3) COPD (chronic obstructive pulmonary disease): Qualifiers: COPD type: unspecified COPD Qualified Code(s): J44.9 - Chronic obstructive pulmonary disease, unspecified Code(s): J44.9 - Chronic obstructive pulmonary disease, unspecified Status: Chronic Assessment and Plan: Clinically stable will continue home regimen Additional Plan Date of service was 12/04/2019 at 21:30 hrs. Subjective Date/time seen: 12/08/19 14:12 Patient 84-year-old female a resident of nursing with baseline dementia apparently patient was agitated combative and more confused was sent to emergency department for further evaluation patient still is quite confused uncooperative does not provide any history, does not want to be examined, and been aggressive. Patient is found to UTI this may have worsen of her confusion and agitation, patient was started on Rocephin, urine culture is growing E coli sensitive to Rocephin will continue, today still is quite agitated and uncooperative but answers few questions, now agreeable to brief exam, denies any abdominal pain nausea or vomiting fever or chills. If her symptoms do not improve by Monday family may consider comfort care for the patient Review of Systems Review of Systems: All systems reviewed & are unremarkable except as noted in HPI and below Exam Narrative: Exam Narrative: Elderly frail appears chronically ill Const: General: no acute distress HENMT: General nose exam: Normal nares present Eyes: Sclera: sclerae normal Neck: Other: No retraction Resp: Effort & Inspection: normal respiratory effort Auscultation: clear to auscultation bilaterally Cardio: Rate: regular rate Rhythm: regular rhythm GI: Auscultation: normal bowel sounds Skin: General skin exam: normal color Neuro: Other: Patient still quite confused Extrem: General: normal to inspection Psych: Affect: Hostile affect present Attitude: Belligerent attititude/behavior present Objective Data Vital Signs Vital Signs: Vital Signs - 24 hr 12/07/19 20:06 12/07/19 22:00 12/08/19 06:00 Temperature 97.6 F 98.5 F Pulse Rate 58 L 58 L 56 L Respiratory Rate 18 18 Blood Pressure 136/51 L 153/68 H Pulse Oximetry 91 95 12/08/19 09:48 Temperature Pulse Rate 77 Respiratory Rate Blood Pressure Pulse Oximetry Intake/Output Intake/Output: Intake & Output 12/05/19 12/06/19 12/07/19 12/08/19 23:59 23:59 23:59 23:59 Intake Total 1250 1340 1560 1350 Output Total 1100 350 550 Balance 884 092 0017 1350 Meds/Results Medications: Active Medications Generic Name Dose Route Start Last Admin Trade Name Freq PRN Reason Stop Dose Admin Acetaminophen 650 mg 12/05/19 14:58 12/07/19 14:24 Tylenol Tablet PO 650 mg Q6H PRN Administration
[2019-12-08] MEDS: MECLIZINE HCL 25 MG TABLET PO ×2 (14:36→17:06)
[2019-12-08] MEDS: LORazepam 0.5 MG TABLET PO ×2 (17:06→21:01)
[2019-12-08] MEDS: RIVAROXABAN 20 MG TABLET PO (17:07)
[2019-12-08 21:00] VITALS: PULSE 66
[2019-12-08] MEDS: ATORVASTATIN 40 MG TABLET PO (21:00)
[2019-12-08 22:00] VITALS: BP 178/88; PULSE 68; RESP 18; TEMP 36.8; O2SAT 95
[2019-12-09] MEDS: SODIUM CHLORIDE 0.9% IV 1,000 ML 80 ML IV CONT ×3 (03:09→18:18)
[2019-12-09 06:00] VITALS: BP 185/86; PULSE 68; RESP 16; TEMP 36.6; O2SAT 91
[2019-12-09] MEDS: LEVOTHYROXINE SODIUM 125 MCG TABLET PO (06:02)
[2019-12-09 07:59] LABS: Hemoglobin 15.1 g/dL (12.0-15.0); Mean Corpuscular HGB Conc 32.8 g/dl (32-36); Mean Corpuscular Hemoglobin 32.6 pg (26-34); Mean Corpuscular Volume 99.4 fl (80-100); Mean Platelet Volume 10.1 fl (7.4-10.4); Platelet Count Result 236 k/mm3 (150-375); Red Blood Count 4.63 M/mm3 (4.2-5.4); Red Cell Distribution Width 13.9 % (11.5-14.5); White Blood Count 9.9 K/mm3 (4.5-10.0)
[2019-12-09] MEDS: FERROUS SULFATE 324 MG TABLET PO (07:59)
[2019-12-09] MEDS: ACIDOPHILUS/BULGARICUS CHEWABLE TABLET 1 TABLET PO (07:59)
[2019-12-09 08:00] VITALS: PULSE 68; RESP 16; O2SAT 91
[2019-12-09] MEDS: METOPROLOL TARTRATE 25 MG TABLET PO ×2 (08:00→20:14)
[2019-12-09] MEDS: THERAPEUTIC MULTIVITAMINS/MINERALS TAB (*BKC) 1 TABLET PO (08:00)
[2019-12-09] MEDS: FLUoxetine HCL 20 MG CAPSULE PO (08:00)
[2019-12-09] MEDS: PANTOPRAZOLE 40 MG TABLET PO (08:00)
[2019-12-09] MEDS: OFLOXACIN 0.3% OP SOLN 5 ML BTL EACH EYE ×3 (08:03→17:55)
[2019-12-09] MEDS: MECLIZINE HCL 25 MG TABLET PO ×3 (08:03→17:59)
[2019-12-09 08:22] LABS: Blood Urea Nitrogen 6 mg/dL (7-17); Calcium 8.3 mg/dL (8.4-10.2); Carbon Dioxide 19 mmol/L (22-30); Chloride 116 mmol/L (98-107); Estimated CRCL calculation 58 ml/min; Estimated Glomerular Filt Rate > 60; Glucose 98 mg/dL (65-105); Potassium 3.7 mmol/L (3.4-5.0); Sodium 143 mmol/L (137-145)
[2019-12-09] MEDS: LORazepam 0.5 MG TABLET PO ×2 (11:55→20:15)
--- NOTE | 2019-12-09 12:19 | PM.DS ---
DS: Admitting Diagnosis Admitting Diagnosis Admitting Diagnosis: Urinary tract infection, site not specified DS: Discharge Diagnosis Discharge Diagnosis (1) Encephalopathy acute: Code(s): G93.40 - Encephalopathy, unspecified Status: Acute Assessment and Plan: 12/08/19 14:12 Patient 84-year-old female a resident of nursing with baseline dementia apparently patient was agitated combative and more confused was sent to emergency department for further evaluation patient still is quite confused uncooperative does not provide any history, does not want to be examined, and been aggressive. Patient is found to UTI this may have worsen of her confusion and agitation, patient was started on Rocephin, urine culture is growing E coli sensitive to Rocephin will continue, today still is quite agitated and uncooperative but answers few questions, now agreeable to brief exam, denies any abdominal pain nausea or vomiting fever or chills. If her symptoms do not improve by Monday family may consider comfort care for the patient (2) Acute UTI: Code(s): N39.0 - Urinary tract infection, site not specified Status: Acute Assessment and Plan: Will start the patient on Rocephin will follow-up on urine culture and sensitivity plan is above (3) Acute metabolic encephalopathy: Code(s): G93.41 - Metabolic encephalopathy Status: Acute (4) HTN (hypertension): Qualifiers: Hypertension type: unspecified Qualified Code(s): I10 - Essential (primary) hypertension Code(s): I10 - Essential (primary) hypertension Status: Chronic (5) Hypothyroidism: Qualifiers: Hypothyroidism type: unspecified Qualified Code(s): E03.9 - Hypothyroidism, unspecified Code(s): E03.9 - Hypothyroidism, unspecified Status: Chronic DS: Summary Time Spent with Patient Time attestation: Total time spent providing and/or coordinating discharge services: DS: Data Data Completed and Pending Labs on day of discharge: Labs from last 24 hours 12/09/19 12/09/19 07:42 07:42 WBC 9.9 RBC 4.63 Hgb 15.1 H Hct 46.0 MCV 99.4 MCH 32.6 MCHC 32.8 RDW 13.9 Plt Count 236 MPV 10.1 Sodium 143 Potassium 3.7 Chloride 116 H Carbon Dioxide 19 L BUN 6 L D Creatinine 0.50 L Estim Creat Clear Calc 58 Estimated GFR > 60 Glucose 98 Calcium 8.3 L Preliminary micro results at discharge 12/05/19 06:43 Blood Culture - Preliminary Blood 12/04/19 19:54 Blood Culture - Preliminary Blood Discharge Plan Discharge Attending physician on discharge: Karina Arita Consulting providers: Ashley Garcia ; Zackery Elam ; Uriah Richard Discharging Clinician: Karina Arita Patient Disposition: SNF Activity: as tolerated Diet: heart healthy Discharge Instructions: Patient to follow up with her primary care provider as soon as possible. Patient Instructions: Antibiotic Form, Rivaroxaban (By mouth) Stand Alone Forms: General Discharge Information Discharge Medications: New cefdinir 300 mg capsule 300 mg PO Q12H Qty: 10 RF: 0 Continued acetaminophen [Tylenol] 325 mg Capsule 650 mg PO Q4H PRN (Reason: Pain, Mild) RF: 0 atorvastatin 40 mg Tablet 40 mg PO QPM RF: 0 lorazepam 0.5 mg Tablet 0.5 mg PO BID RF: 0 fluoxetine 20 mg Capsule 20 mg PO DAILY RF: 0 Lactobacillus acidoph-L.bulgar [Floranex] 1 million cell Tablet 1 tablet PO DAILY RF: 0 ofloxacin 0.3 % Drops 1 - 2 drp OPHTHALMIC (EYE) QID RF: 0 loperamide 2 mg Tablet 2 mg PO PRN PRN (Reason: Diarrhea) RF: 0 magnesium hydroxide [Milk of Magnesia] 400 mg/5 mL Suspension 30 ml PO BID PRN (Reason: Constipation) RF: 0 meclizine 25 mg Tablet 25 mg PO TID RF: 0 pantoprazole 40 mg Tablet,Delayed Release (Dr/Ec) 40 mg PO DAILY RF: 0 ferrous sulfate [Iron (ferrous sulfate)] 325 mg (65 mg iron) Tablet
[2019-12-09 14:00] VITALS: BP 140/81; PULSE 79; RESP 18; TEMP 36.7; O2SAT 95
[2019-12-09] MEDS: RIVAROXABAN 20 MG TABLET PO (17:56)
[2019-12-09 20:00] VITALS: PULSE 90; RESP 18; O2SAT 95
[2019-12-09 20:14] VITALS: PULSE 90
[2019-12-09] MEDS: ATORVASTATIN 40 MG TABLET PO (20:15)
[2019-12-10 06:00] VITALS: BP 150/68; PULSE 62; RESP 20; TEMP 36.2; O2SAT 90
[2019-12-10] MEDS: SODIUM CHLORIDE 0.9% IV 1,000 ML 80 ML IV CONT ×2 (07:22→20:57)
[2019-12-10] MEDS: LEVOTHYROXINE SODIUM 125 MCG TABLET PO (07:24)
[2019-12-10 07:28] LABS: Hematocrit 39.8 % (37.0-47.0); Hemoglobin 12.6 g/dL (12.0-15.0); Mean Corpuscular HGB Conc 31.7 g/dl (32-36); Mean Corpuscular Hemoglobin 32.4 pg (26-34); Mean Corpuscular Volume 102.3 fl (80-100); Mean Platelet Volume 10.4 fl (7.4-10.4); Platelet Count Result 230 k/mm3 (150-375); Red Blood Count 3.89 M/mm3 (4.2-5.4); White Blood Count 7.7 K/mm3 (4.5-10.0)
[2019-12-10 07:42] LABS: Blood Urea Nitrogen 5 mg/dL (7-17); Calcium 7.4 mg/dL (8.4-10.2); Carbon Dioxide 19 mmol/L (22-30); Chloride 116 mmol/L (98-107); Estimated CRCL calculation 58 ml/min; Estimated Glomerular Filt Rate > 60; Glucose 94 mg/dL (65-105); Potassium 3.2 mmol/L (3.4-5.0); Sodium 141 mmol/L (137-145)
[2019-12-10 08:00] VITALS: PULSE 62; RESP 20; O2SAT 90
[2019-12-10] MEDS: FERROUS SULFATE 324 MG TABLET PO (09:31)
[2019-12-10] MEDS: FLUoxetine HCL 20 MG CAPSULE PO (09:31)
[2019-12-10] MEDS: PANTOPRAZOLE 40 MG TABLET PO (09:31)
[2019-12-10] MEDS: THERAPEUTIC MULTIVITAMINS/MINERALS TAB (*BKC) 1 TABLET PO (09:31)
[2019-12-10] MEDS: ACIDOPHILUS/BULGARICUS CHEWABLE TABLET 1 TABLET PO (09:32)
[2019-12-10] MEDS: MECLIZINE HCL 25 MG TABLET PO ×3 (09:33→18:03)
[2019-12-10] MEDS: METOPROLOL TARTRATE 25 MG TABLET PO ×2 (09:34→21:06)
[2019-12-10] MEDS: OFLOXACIN 0.3% OP SOLN 5 ML BTL EACH EYE ×4 (09:35→21:07)
--- NOTE | 2019-12-10 15:43 | PM.DS ---
DS: Admitting Diagnosis Admitting Diagnosis Admitting Diagnosis: Urinary tract infection, site not specified DS: Discharge Diagnosis Discharge Diagnosis (1) Encephalopathy acute: Code(s): G93.40 - Encephalopathy, unspecified Status: Acute (2) Acute UTI: Code(s): N39.0 - Urinary tract infection, site not specified Status: Acute (3) Acute metabolic encephalopathy: Code(s): G93.41 - Metabolic encephalopathy Status: Acute (4) HTN (hypertension): Qualifiers: Hypertension type: unspecified Qualified Code(s): I10 - Essential (primary) hypertension Code(s): I10 - Essential (primary) hypertension Status: Chronic (5) Hypothyroidism: Qualifiers: Hypothyroidism type: unspecified Qualified Code(s): E03.9 - Hypothyroidism, unspecified Code(s): E03.9 - Hypothyroidism, unspecified Status: Chronic DS: Summary Hospital Course Hospital Course: 84 yo woman who presented to the hospital from a NH with AMS. She has underlying dementia however her mental status was worse than baseline, she was aggressive and uncooperative. Her metabolic encephalopathy was most likely due to a UTI, her urine cultures grew E coli that is susceptible to ceftriaxone. She had almost 7 days of IV abx and her mental status seems to be getting close to baseline. She was discharged by the hospitalist yesterday but the NH had no beds and requested another COVID screening. She was discharged on cefdinir. Time Spent with Patient Time attestation: Total time spent providing and/or coordinating discharge services: Time spent: Less than 30 minutes Exam Const: General: comfortable and no acute distress Neck: Neck: supple and no JVD Resp: Auscultation: clear to auscultation bilaterally Cardio: Rate: regular rate Rhythm: regular rhythm GI: GI Palp: Yes Soft to palpation Auscultation: normal bowel sounds Neuro: Motor exam (neuro): Normal motor muscle tone present throughout DS: Data Data Completed and Pending Labs on day of discharge: Labs from last 24 hours 12/10/19 12/10/19 12/10/19 10:27 07:15 07:15 WBC 7.7 RBC 3.89 L Hgb 12.6 Hct 39.8 MCV 102.3 H MCH 32.4 MCHC 31.7 L RDW 14.0 Plt Count 230 MPV 10.4 Sodium 141 Potassium 3.2 L Chloride 116 H Carbon Dioxide 19 L BUN 5 L Creatinine 0.50 L Estim Creat Clear Calc 58 Estimated GFR > 60 Glucose 94 Calcium 7.4 L SARS-CoV-2 RNA (RT-PCR) Pending Preliminary micro results at discharge 12/05/19 06:43 Blood Culture - Preliminary Blood Discharge Plan Discharge Attending physician on discharge: Karina Arita Consulting providers: Ashley Garcia Discharging Clinician: Karina Arita Patient Disposition: NH [facility] Activity: as tolerated Diet: heart healthy Discharge Instructions: Patient to follow up with her primary care provider as soon as possible. Patient Instructions: Antibiotic Form, Rivaroxaban (By mouth) Stand Alone Forms: General Discharge Information Discharge Medications: New cefdinir 300 mg capsule 300 mg PO Q12H Qty: 10 RF: 0 Continued acetaminophen [Tylenol] 325 mg Capsule 650 mg PO Q4H PRN (Reason: Pain, Mild) RF: 0 atorvastatin 40 mg Tablet 40 mg PO QPM RF: 0 lorazepam 0.5 mg Tablet 0.5 mg PO BID RF: 0 fluoxetine 20 mg Capsule 20 mg PO DAILY RF: 0 Lactobacillus acidoph-L.bulgar [Floranex] 1 million cell Tablet 1 tablet PO DAILY RF: 0 ofloxacin 0.3 % Drops 1 - 2 drp OPHTHALMIC (EYE) QID RF: 0 loperamide 2 mg Tablet 2 mg PO PRN PRN (Reason: Diarrhea) RF: 0 magnesium hydroxide [Milk of Magnesia] 400 mg/5 mL Suspension 30 ml PO BID PRN (Reason: Constipation) RF: 0 meclizine 25 mg Tablet 25 mg PO TID RF: 0 pantoprazole 40 mg Tablet,Delayed Release (Dr/Ec) 40 mg PO DAILY RF: 0 ferrous sulfate [Iron (ferrous
[2019-12-10] MEDS: RIVAROXABAN 20 MG TABLET PO (18:02)
[2019-12-10 19:08] LABS: SARS-CoV-2 RNA PCR Negative
[2019-12-10 21:06] VITALS: PULSE 62
[2019-12-10] MEDS: ATORVASTATIN 40 MG TABLET PO (21:06)
[2019-12-10 22:00] VITALS: BP 148/72; PULSE 61; RESP 16; TEMP 36.9; O2SAT 94
[2019-12-11 06:00] VITALS: BP 165/78; PULSE 65; RESP 18; TEMP 37.2; O2SAT 92
[2019-12-11] MEDS: LEVOTHYROXINE SODIUM 125 MCG TABLET PO (06:34)
[2019-12-11 08:00] VITALS: PULSE 65; RESP 18; O2SAT 92
[2019-12-11] MEDS: OFLOXACIN 0.3% OP SOLN 5 ML BTL EACH EYE (12:10)
[2019-12-11] MEDS: PANTOPRAZOLE 40 MG TABLET PO (12:11)
[2019-12-11] MEDS: ACIDOPHILUS/BULGARICUS CHEWABLE TABLET 1 TABLET PO (12:12)
[2019-12-11] MEDS: FERROUS SULFATE 324 MG TABLET PO (12:12)
[2019-12-11] MEDS: THERAPEUTIC MULTIVITAMINS/MINERALS TAB (*BKC) 1 TABLET PO (12:13)
[2019-12-11] MEDS: METOPROLOL TARTRATE 25 MG TABLET PO (12:13)
[2019-12-11] MEDS: MECLIZINE HCL 25 MG TABLET PO (12:13)
[2019-12-11] MEDS: FLUoxetine HCL 20 MG CAPSULE PO (12:13)
--- NOTE | 2020-01-14 17:36 | PM.IMPN ---
Progress Note: A&P Assessment and Plan (1) Encephalopathy acute: Code(s): G93.40 - Encephalopathy, unspecified Status: Acute Assessment and Plan: Patient 84-year-old female a resident of nursing with baseline dementia apparently patient was agitated combative and more confused was sent to emergency department for further evaluation patient still is quite confused uncooperative does not provide any history, does not want to be examined, and been aggressive. Patient is found to UTI this may have worsen of her confusion and agitation, patient was started on Rocephin, urine culture is growing E coli sensitive to Rocephin will continue, today still is quite agitated and uncooperative but answers few questions, now agreeable to brief exam, denies any abdominal pain nausea or vomiting fever or chills. If her symptoms do not improve by Monday family may consider comfort care for the patient (2) Acute UTI: Code(s): N39.0 - Urinary tract infection, site not specified Status: Acute Assessment and Plan: Will start the patient on Rocephin will follow-up on urine culture and sensitivity plan is above (3) Acute metabolic encephalopathy: Code(s): G93.41 - Metabolic encephalopathy Status: Acute (4) HTN (hypertension): Qualifiers: Hypertension type: unspecified Qualified Code(s): I10 - Essential (primary) hypertension Code(s): I10 - Essential (primary) hypertension Status: Chronic (5) Hypothyroidism: Qualifiers: Hypothyroidism type: unspecified Qualified Code(s): E03.9 - Hypothyroidism, unspecified Code(s): E03.9 - Hypothyroidism, unspecified Status: Chronic Subjective Date/time seen: 12/09/2019 Patient 84-year-old female a resident of nursing with baseline dementia apparently patient was agitated combative and more confused was sent to emergency department for further evaluation patient still is quite confused uncooperative does not provide any history, does not want to be examined, and been aggressive. Patient is found to UTI this may have worsen of her confusion and agitation, patient was started on Rocephin, urine culture is growing E coli sensitive to Rocephin will continue, today still is quite agitated and uncooperative but answers few questions, now agreeable to brief exam, denies any abdominal pain nausea or vomiting fever or chills. If her symptoms do not improve by Monday family may consider comfort care for the patient Review of Systems Review of Systems: ROS unobtainable: Yes unobtainable due to medical condition Exam Const: General: comfortable and no acute distress HENMT: General nose exam: Normal nares present Eyes: Sclera: sclerae normal Resp: Effort & Inspection: normal respiratory effort GI: Other: Not distended Skin: General skin exam: normal color Neuro: Other: not cooperative Extrem: General: normal to inspection Psych: Affect: Hostile affect present Objective Data Meds/Results Radiology Results: ITS Impressions Head CT 12/04/19 20:32 IMPRESSION: 1. No acute intracranial abnormality. 2: Chronic bilateral lacunar infarctions. 3: Chronic age-related findings. Chest X-Ray 12/04/19 20:38 Impression: 1: Chronic interstitial changes of the lung bases, likely interstitial fibrosis. 2: No acute cardiopulmonary disease. Quality VTE Prophylaxis VTE prophylaxis: mechanical ordered
== END 2019-12-11 12:55 | DRG 689 ==
LOC: ANHED 20:57 → ANH3MEDSUR 21:08
PROVIDERS: Family Medicine; General Practice; Internal Medicine; Admitting Provider Family Medicine; Emergency Provider Emergency Medicine; Visit Provider Hospitalist
DX: N39.0 Urinary tract infection, site not specified (principal); G93.41 Metabolic encephalopathy; B96.20 Unspecified Escherichia coli [E. coli] as the cause of diseases classified elsewhere; I10 Essential (primary) hypertension; E03.9 Hypothyroidism, unspecified; J44.9 Chronic obstructive pulmonary disease, unspecified; Z87.891 Personal history of nicotine dependence; Z11.59 Encounter for screening for other viral diseases
CPT/HCPCS: 36415; 51701; 70450; 71045; 80048; 81001; 82607; 82746; 83605; 84443; 85025; 85027; 85610; 85730; 87040; 87077; 87086; 87088; 87186; 87635; 93005; 96365; 99285; A9270; C9803; G0378; J0696; J7030; U0003

== ENCOUNTER 2019-12-11 15:07 | Emergency (ER) | payer MEDICARE, SELFPAY ==
--- NOTE | ~2019-12-11 | CT_ITS ---
EXAMINATION: CT brain wo con DATE: 12/11/2019 16:21 INDICATION: correction patient, reported not acting right TECHNIQUE: Computed tomography (CT) of the head was performed without intravenous contrast. The mA wa s adjusted according to patient size. Iterative reconstruction technique was employed. Exam dose: 68 1.00 mGy-cm total exam DLP. COMPARISON: 12/04/2019 CT brain FINDINGS: Chronic bilateral basal ganglia and right periventricular lacunar infarcts. There is nonspecific diminished attenuation of the cerebral white matter, likely due to chronic small vessel ischemic changes. Prominent bilateral carotid siphon internal carotid artery calcifications a re noted. Cerebral and cerebellar atrophy are again noted. No intracranial mass lesion or hemorrhage or recent cerebrovascular accident is detected. CT examinat ion is not sensitive for detection of hyperacute nonhemorrhagic infarcts. No intracranial mass lesion or hemorrhage, midline shift or mass effect is detected. No subdural or epidural hematoma. Included paranasal sinuses and mastoid air cells are normally developed and aerated. No fracture or b one destruction of the cranial vault. IMPRESSION: Chronic bilateral lacunar infarcts Cerebral atherosclerosis and chronic small vessel ischemic changes Cerebral and cerebellar atrophy. Reviewed, dictated and finalized at [facility] Reviewed, dictated and finalized at [facility].
--- NOTE | ~2019-12-11 | XR_ITS ---
XR chest 1V DATE: 12/11/2019 16:26 INDICATION: Transient alteration of awareness TECHNIQUE: AP view on 12/11/2019 at 1623 hours COMPARISON: 12/04/2019 portable AP chest FINDINGS: Borderline heart size. Aortic arch calcification. There is patchy infiltrate and/atelectasis in the left lower lung field and to a minimal extent the r ight lung base. Mild discoid atelectasis or scarring in the upper lung zones. Mild left pleural effusion is suggested. No apparent right pleural effusion. Diffuse osteopenia. Mild dextro scoliosis of the thoracic spine. Left humeral head replacement. Statu s post resection lateral aspect of left clavicle. Bilateral rotator cuff atrophy. Surgical clips overlie the very lower mid chest. IVC filter. IMPRESSION: Bilateral lower lung infiltrates and/atelectasis, left greater than right Mild discoid atelectasis or scarring in the upper lung zones Borderline heart size. Aortic calcification Small left pleural effusion is suggested Reviewed, dictated and finalized at [facility].
[2019-12-11 15:09] VITALS: BP 179/78; PULSE 78; RESP 20; TEMP 36.6; O2SAT 99
--- NOTE | 2019-12-11 15:46 | ECG_ITS ---
Measurements Intervals [place] Rate: 60 P: -30 NM: 152 QRS: -62 QRSD: 162 T: 121 QT: 470 QTc: 470 Interpretive Statements SINUS RHYTHM VENTRICULAR PREMATURE COMPLEX LEFT AXIS DEVIATION LEFT BUNDLE BRANCH BLOCK BASELINE ARTIFACT- I, II, III, AVR, AVL, AVF, V4-V6 ABNORMAL ECG Electronically Signed On 12-11-2019 20:20:09 CDT by Uriah Richard D.O.
[2019-12-11 15:59] LABS: Basophils Absolute Auto 0.1 K/mm3 (0.0-0.1); Basophils Percent Auto 0.6 % (0.2-1.2); Eosinophils Absolute Auto 0.3 K/mm3 (0-0.3); Eosinophils Percent Auto 3.4 % (0-4.4); Hemoglobin 13.9 g/dL (12.0-15.0); Immature Granulocyte Absolute 0.03 K/mm3 (0.00-0.031); Immature Granulocyte Percent A 0.4 % (0-0.5); Lymphocytes Absolute Auto 1.64 K/mm3 (0.9-3.2); Lymphocytes Percent Auto 19.8 % (18.3-44.2); Mean Corpuscular HGB Conc 33.1 g/dl (32-36); Mean Corpuscular Hemoglobin 32.6 pg (26-34); Mean Corpuscular Volume 98.6 fl (80-100); Mean Platelet Volume 10.8 fl (7.4-10.4); Monocytes Absolute Auto 0.7 K/mm3 (0.1-0.6); Monocytes Percent Auto 8.1 % (2.6-8.5); Neutrophils Absolute Auto 5.6 K/mm3 (1.3-6.7); Neutrophils Percent Auto 67.7 % (45.5-73.1); Platelet Count Result 247 k/mm3 (150-375); Red Blood Count 4.26 M/mm3 (4.2-5.4); White Blood Count 8.3 K/mm3 (4.5-10.0)
[2019-12-11 16:18] LABS: Alanine Aminotransferase 16 U/L (4-35); Albumin Level 3.2 g/dL (3.5-5.1); Alkaline Phosphatase 107 U/L (38-126); Aspartate Amino Transferase 44 U/L (14-36); Bilirubin,Total 0.5 mg/dL (0.2-1.3); Blood Urea Nitrogen 7 mg/dL (7-17); Calcium 7.5 mg/dL (8.4-10.2); Carbon Dioxide 21 mmol/L (22-30); Chloride 113 mmol/L (98-107); Estimated CRCL calculation 60 ml/min; Estimated Glomerular Filt Rate > 60; Glucose 72 mg/dL (65-105); Potassium 3.5 mmol/L (3.4-5.0); Sodium 140 mmol/L (137-145)
--- NOTE | 2019-12-11 16:58 | ED.AMS ---
HPI - Altered Mental Status General Chief Complaint: Altered Mental Status Stated Complaint: AMS Time Seen by Provider: 12/11/19 16:07 Source: old records reviewed and other (NH notes) Mode of arrival: EMS Limitations: clinical condition and dementia History of Present Illness HPI narrative: This is a 84-year-old lady who was hospitalized here for 6 days and treated for a UTI and delirium She was apparently supposed to be discharged yesterday but instead was discharged today because she had to wait for a negative covid swab When she got to [facility] they basically you turned her back to the ER with the entirety of their documentation being acute change in condition There is no further documentation of any sort to indicate what kind of change in condition they are worried about or what her condition usually is The patient is oriented to name only and unable to contribute 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 she seems to look about the same here in the ER today as she did on the floors for the last [address] Jay who was her last hopspitlaist also sees little difference It appears she was given Ativan prior to discharge to ease her ambulance transport as well Onset (ago): unknown Timing confirmed by: other Related Data Home Medications Medication Instructions Recorded Confirmed Lactobacillus acidoph-L.bulgar 1 tablet PO DAILY 12/04/19 12/05/19 [Floranex] acetaminophen [Tylenol] 650 mg PO Q4H PRN 12/04/19 12/05/19 atorvastatin 40 mg PO QPM 12/04/19 12/05/19 fluoxetine 20 mg PO DAILY 12/04/19 12/05/19 lorazepam 0.5 mg PO BID 12/04/19 12/05/19 Xarelto 20 mg PO DAILY 12/05/19 12/05/19 ferrous sulfate [Iron (ferrous 325 mg PO DAILY 12/05/19 12/05/19 sulfate)] levothyroxine 125 mcg PO DAILY 12/05/19 12/05/19 loperamide 2 mg PO PRN PRN 12/05/19 12/05/19 magnesium hydroxide [Milk of 30 ml PO BID PRN 12/05/19 12/05/19 Magnesia] meclizine 25 mg PO TID 12/05/19 12/05/19 metoprolol tartrate 25 mg PO BID 12/05/19 12/05/19 multivitamin,[id number] 1 tablet PO DAILY 12/05/19 12/05/19 ofloxacin 1 - 2 drp OPHTHALMIC (EYE) QID 12/05/19 12/05/19 pantoprazole 40 mg PO DAILY 12/05/19 12/05/19 Allergies Allergy/AdvReac Type Severity Reaction Status Date / Time adenosine Allergy Severe Dyspnea / Verified 12/05/19 01:02 SOB Sulfa (Sulfonamide Allergy Unknown Unknown Verified 12/05/19 01:02 Antibiotics) Review of Systems Review of Systems: ROS unobtainable: Yes unobtainable due to mental status [facility] Past Medical History Medical History (Updated 12/11/19 @ 18:03 by Melecio Mcgee MD) COPD (chronic obstructive pulmonary disease) Dementia HTN (hypertension) Hypothyroidism Social History Social History Smoking status: Unknown if ever smoked Alcohol intake: unknown Substance use: unknown Gender identity (if verbalized by the patient): Female Spiritual care concerns: No Exam Const: General: no acute distress, alert, confusion and ill appearing HENMT: Head: normal to inspection Eyes: Pupils: Equal, round and reactive pupils present Neck: Neck: no meningeal signs Resp: Effort & Inspection: normal respiratory effort Auscultation: clear to auscultation bilaterally Cardio: Rate: regular rate Rhythm: regular rhythm GI: GI Palp: Yes Soft to palpation, No Guarding due to palpation present (GI) and No Rebound tenderness present Skin: General skin exam: pallor Neuro: General: No patient oriented x3 and moves all extremities Extrem: General: normal to inspection Psych: Appearance: other Course Vital Signs Vital signs: Vital Signs Temperature 36.6 C 12/11/19 15:09 Pulse Rate 78 12/11/19 15:09 Respiratory Rate 20 12/11/19 15:09 Blood Pressure 179/78 H 12/11/19 15:09 Pulse Oximetry 99 12/11/19 15:09 Temperature 36.6 C 12/11/19 15:09 Pulse Rate 64 12/11/19 17:29 Respiratory Rate 18
[2019-12-11 17:29] VITALS: BP 154/88; PULSE 64; RESP 18; O2SAT 97
[2019-12-11 17:40] LABS: Add Urine Microscopic? YES; Appearance Urine Clear (Clear); Bacteria Urine Trace /hpf; Bilirubin Urine Negative (Negative); Blood Urine Negative (Negative); Color Urine Yellow (Yellow); Glucose Urine UA Negative (Negative); Ketones Urine 1+ mg/dL (Negative); Leukocyte Esterase Ur Trace LEU/UL (Negative); Mucus Urine Rare /lpf; Nitrate Urine Negative (Negative); Protein Urine Negative (Negative); RBC Urine 0-2 /hpf (0-2); Specific Grav Ur 1.011 (1.001-1.035); Squamous Epithelial Cell Urine Many /hpf (Few); Urobilinogen Urine Negative mg/dL (<2.0)
--- NOTE | 2019-12-11 20:31 | PC.NURSE ---
Addendum entered by Mila Brooks 12/11/19 22:32: Called [facility] for status...ETA 23:45 Addendum entered by Mila Brooks 12/11/19 20:40: Also, called sydnee Cisneros. Original Note: 1820: day [facility] called for transport back to facility...ETA 20:00 20:33: called [facility] for updated ETA....22:30 (due to high volume of calls and limited availability) Called sydnee Hairston.
--- NOTE | 2019-12-11 22:59 | PC.NURSE ---
ASSUMED PT CARE AT THIS TIME AFTER REPORT FROM ANDREA BACH, PT IN BED TALKING TO SELF, DISORIENTED WHICH PER ANDREA BACH IS PT NORMAL. PT AWAITING EMS TRANSFER BACK TO [facility], PER ANDREA BACH ETA 1145, STATES THAT SHE HAS ALREADY CALLED REPORT EARLIER THIS EVENING.
[2019-12-11 23:15] VITALS: BP 105/68; PULSE 86; RESP 18; O2SAT 97
== END 2019-12-11 23:16 ==
PROVIDERS: Emergency Provider Emergency Medicine
DX: F03.90 Unspecified dementia, unspecified severity, without behavioral disturbance, psychotic disturbance, mood disturbance, and anxiety (principal); J44.9 Chronic obstructive pulmonary disease, unspecified; I10 Essential (primary) hypertension; E03.9 Hypothyroidism, unspecified; I49.3 Ventricular premature depolarization; I44.7 Left bundle-branch block, unspecified; R94.31 Abnormal electrocardiogram [ECG] [EKG]
CPT/HCPCS: 36415; 70450; 71045; 80053; 81001; 85025; 93005; 99284

== ENCOUNTER 2020-02-10 13:09 | Inpatient (IN) | payer MEDICARE, SELFPAY ==
[2020-02-10] VITALS (11 sets, daily range): BP systolic 105–152; BP diastolic 51–85; PULSE 70–78; RESP 18–24; TEMP 36.4–36.7; O2SAT 94–99
--- NOTE | ~2020-02-10 | CT_ITS ---
EXAMINATION: CT brain wo con EXAM DATE: 02/10/2020 14:16 INDICATION: Altered mental status. TECHNIQUE: Spiral CT of the head was performed without contrast. Axial, coronal and sagittal images were reviewed. The dose-length product (DLP) for this examination was 605.33 mGy-cm. The exposure w as tailored according to patient size, and iterative reconstruction (ASIR) was used as additional dos e reduction technique. Comparison is made to prior examination from 12/11/2019. FINDINGS: There is no acute intraparenchymal hemorrhage. No evidence of intraparenchymal brain mass lesion. No evidence of acute infarction. Please note that initial head CT has limited sensitivity f or small or acute infarctions. Old bilateral basal ganglia lacunar infarctions. There is old right p eriventricular lacunar infarction. There is moderate periventricular and subcortical hypodensity, non specific but probably related to small vessel ischemic disease. There is ventricular prominence out of proportion to sulci which is suspected most likely central atrophy rather than hydrocephalus. No rmal pressure hydrocephalus cannot be excluded (clinical triad ataxia/gait disturbance, dementia, uri nary incontinence). There is intracranial carotid arteriosclerosis. There are no extra-axial colle ctions. There is no mass effect or midline shift. Patient has had bilateral ocular lens surgery. S oft tissue is unremarkable. The visualized sinuses and mastoid air cells are well aerated. IMPRESSION: 1. No acute intracranial findings. 2. Chronic age related findings. 3. Old bilateral lacunar infarctions. Reviewed, dictated and finalized at location A.
--- NOTE | ~2020-02-10 | XR_ITS ---
XR chest 1V 02/10/2020 14:25 Indication: Choking and shortness of breath Procedure: AP view of the chest Comparison: Comparison to multiple prior studies sequentially, with oldest reviewed study dated 11/2018. Findings: Cardiomegaly. Mild interstitial edema. There is apical pleural thickening/scarring. There i s a left shoulder arthroplasty. Impression: 1: Cardiomegaly with mild interstitial edema. Reviewed, dictated and finalized at location B. Impression: 1: Cardiomegaly with mild interstitial edema.
--- NOTE | ~2020-02-10 | XR_ITS ---
EXAMINATION: XR barium swallow modified EXAM DATE: 02/11/2020 11:18 INDICATION: Dysphagia. TECHNIQUE: Modified barium esophagram was performed by myself to administered fluoroscopy, in conjun ction with speech pathologist who administered barium in varying consistencies as per speech patholog ist documentation. This was recorded on tape. The DAP for this procedure was 1.0 Gycm2. FINDINGS: Oral stage: Adequate function. Pharyngeal phase: Adequate function. Laryngeal penetration: Demonstrated at liquid consistencies. Aspiration: Demonstrated, thin liquids. Laryngeal sensitivity: Present. IMPRESSION: Aspiration demonstrated; Please refer to speech pathologist findings and specific feedi ng recommendations. Reviewed, dictated and finalized at location A. IMPRESSION: Aspiration demonstrated; Please refer to speech pathologist findi ngs and specific feeding recommendations.
--- NOTE | ~2020-02-10 | XR_ITS ---
EXAMINATION: XR chest 1V portable EXAM DATE: 02/12/2020 05:56 INDICATION: Hypoxia, chest pain. Rule out pneumonia versus edema. TECHNIQUE: Portable AP frontal chest x-ray was obtained. Comparison is made to prior examination from 02/10/2020. FINDINGS: There is prominent bilateral reticulation. Images to this, at least partly chronic. Difficu lt to exclude mild superimposed acute edema. No confluent consolidation or pneumothorax. Cardiomedias tinal silhouette is normal. Left shoulder replacement. There are bony degenerative changes. There is aortic arteriosclerosis. IVC filter. Epigastric surgical clips. IMPRESSION: Mildly prominent bilateral reticulation, at least partly chronic. Can't exclude mild yg ma. Reviewed, dictated and finalized at location A. IMPRESSION: Mildly prominent bilateral reticulation, at least partly chronic. Can't exclude mild edema.
--- NOTE | 2020-02-10 13:31 | ECG_ITS ---
Measurements Intervals [place] Rate: 72 P: 15 NV: 193 QRS: -59 QRSD: 169 T: 127 QT: 446 QTc: 491 Interpretive Statements SINUS RHYTHM POSSIBLE LEFT ATRIAL ENLARGEMENT LEFT AXIS DEVIATION LEFT BUNDLE BRANCH BLOCK ABNORMAL ECG Electronically Signed On 02-10-2020 14:35:04 CDT by Uriah Richard D.O.
--- NOTE | 2020-02-10 13:31 | PC.NURSE ---
could not draw blood on patient, patient went to xray and ct.
[2020-02-10 13:56] LABS: Alveolar/Arterial O2 Gradient 205.3 mmHg; Base Excess ABG -4.1 mEq/l (+/-2.0); Fractional Inspired Oxygen 44 %; HCO3 ABG 20.6 mEq/l (22.0-26.0); Oxygen Content ABG 20.1 %vol (16.0-22.0); Oxygen Saturation ABG 92.5 % (95.0-100.0); Oxyhemoglobin 91.2 % THb (90.0-100.0); PCO2 ABG 37.2 mmHg (35.0-45.0); Total Hemoglobin 15.7 g/dL (12.0-18.0); pH ABG 7.362 (7.350-7.450)
[2020-02-10 13:57] LABS: Modified Allen's Test Pass; Site Drawn RIGHT RADIAL
[2020-02-10 13:58] LABS: Device NASAL CANNULA
--- NOTE | 2020-02-10 14:51 | PC.NURSE ---
could not get blood on patient, notified RN and airport maintenance chief.
--- NOTE | 2020-02-10 15:18 | ED.GENADULT ---
HPI - General Adult General Chief complaint: Skin/Abscess/Foreign Body Stated complaint: s/p choking, altered MS Time Seen by Provider: 02/10/20 13:31 Source: patient and family Limitations: altered mental status History of Present Illness HPI narrative: Patient is a 84 y/o female sent from [place] for choking episode. Daughter states that patient has baseline Dementia. She received call from [facility] about patient choking while eating a sandwinch. Patient reportedly turned blue. Staff at her facility performed Heimlich maneuver. Patient then became unresponsive. She was laid down and CPR was performed briefly because staff at [facility] could not a feel a pulse. Patient then spit up something and became awake. She does not recall what happened but complains of chest pain. She denies abdominal pain or vomiting. Related Data Home Medications Medication Instructions Recorded Confirmed Lactobacillus acidoph-L.bulgar 1 tablet PO DAILY 12/04/19 12/05/19 [Floranex] acetaminophen [Tylenol] 650 mg PO Q4H PRN 12/04/19 12/05/19 atorvastatin 40 mg PO QPM 12/04/19 12/05/19 fluoxetine 20 mg PO DAILY 12/04/19 12/05/19 Xarelto 20 mg PO DAILY 12/05/19 12/05/19 ferrous sulfate [Iron (ferrous 325 mg PO DAILY 12/05/19 12/05/19 sulfate)] levothyroxine 125 mcg PO DAILY 12/05/19 12/05/19 loperamide 2 mg PO PRN PRN 12/05/19 12/05/19 magnesium hydroxide [Milk of 30 ml PO BID PRN 12/05/19 12/05/19 Magnesia] meclizine 25 mg PO TID 12/05/19 12/05/19 metoprolol tartrate 25 mg PO BID 12/05/19 12/05/19 multivitamin,zr-puxx-zoidyrwd 1 tablet PO DAILY 12/05/19 12/05/19 pantoprazole 40 mg PO DAILY 12/05/19 12/05/19 buspirone mg 02/10/20 memantine mg 02/10/20 Allergies Allergy/AdvReac Type Severity Reaction Status Date / Time adenosine Allergy Severe Dyspnea / Verified 02/10/20 14:03 SOB Sulfa (Sulfonamide Allergy Unknown Unknown Verified 02/10/20 14:03 Antibiotics) Review of Systems Constitutional: Constitutional: Denies chills, Denies fever(s), Denies headache(s) and Denies weakness Eyes: Eyes: Denies blurry vision ENT: Denies headache(s) and Denies neck pain Cardiovascular: Cardiovascular: Reports chest pain and Denies dyspnea Respiratory: Respiratory: Denies cough and Denies dyspnea Gastrointestinal: Gastrointestinal: Denies abdominal pain, Denies diarrhea, Denies nausea and Denies vomiting Genitourinary: Genitourinary: Denies hematuria and Denies dysuria Musculoskeletal: Musculoskeletal: Denies back pain and Denies neck pain Neurologic: Denies headache(s) and Denies weakness [facility] Past Medical History Medical History COPD (chronic obstructive pulmonary disease) Dementia HTN (hypertension) Hypothyroidism Family History Family History Other Unknown family medical history Social History Social History Smoking status: Unknown if ever smoked Alcohol intake: unknown Substance use: unknown Gender identity (if verbalized by the patient): Female Spiritual care concerns: No Exam Const: General: no acute distress and well developed Orientation/consciousness: oriented to person, oriented to place, oriented to time and patient oriented x3 HENMT: Head: normocephalic Ears: external ears normal General nose exam: Normal external nose present Eyes: General: appearance normal, both eyes and all related structures Conjunctivae: conjunctivae normal Neck: Neck: normal visual inspection and full ROM Chest: Chest palpation & inspection: normal inspection of the chest and no tenderness Resp: Effort & Inspection: normal respiratory effort Auscultation: clear to auscultation bilaterally Other: chest wall tenderness Cardio: Rate: regular rate Rhythm: regular rhythm GI: GI Palp: No abdominal tenderness and Yes Soft to palpation Skin: General skin exam: normal color and
[2020-02-10 16:10] LABS: Basophils Absolute Auto 0.1 K/mm3 (0.0-0.1); Basophils Percent Auto 0.3 % (0.2-1.2); Eosinophils Absolute Auto 0.1 K/mm3 (0-0.3); Eosinophils Percent Auto 0.2 % (0-4.4); Hematocrit 44.4 % (37.0-47.0); Hemoglobin 15.2 g/dL (12.0-15.0); Lymphocytes Absolute Auto 1.16 K/mm3 (0.9-3.2); Lymphocytes Percent Auto 5.7 % (18.3-44.2); Mean Corpuscular HGB Conc 34.2 g/dl (32-36); Mean Corpuscular Hemoglobin 32.5 pg (26-34); Mean Corpuscular Volume 95.1 fl (80-100); Mean Platelet Volume 10.6 fl (7.4-10.4); Monocytes Percent Auto 4.9 % (2.6-8.5); Neutrophils Percent Auto 87.9 % (45.5-73.1); Platelet Count Result 262 k/mm3 (150-375); Red Blood Count 4.67 M/mm3 (4.2-5.4); Red Cell Distribution Width 12.8 % (11.5-14.5); White Blood Count 20.4 K/mm3 (4.5-10.0)
[2020-02-10 16:20] LABS: INR 1.6; Prothrombin Time 18.2 Seconds (11.1-14.7)
[2020-02-10 16:21] LABS: Partial Thromboplastin Time 38.5 SECONDS (22.3-36.8)
[2020-02-10 16:40] LABS: Alanine Aminotransferase 35 U/L (4-35); Alkaline Phosphatase 110 U/L (38-126); Anion Gap 8 mmol/L (8-16); Aspartate Amino Transferase 57 U/L (14-36); Bilirubin,Total 0.4 mg/dL (0.2-1.3); Blood Urea Nitrogen 27 mg/dL (7-17); Calcium 8.9 mg/dL (8.4-10.2); Carbon Dioxide 21 mmol/L (22-30); Chloride 105 mmol/L (98-107); Estimated Glomerular Filt Rate > 60; Glucose 154 mg/dL (65-105); Potassium 4.3 mmol/L (3.4-5.0); Sodium 134 mmol/L (137-145)
[2020-02-10 16:52] LABS: Troponin I 0.017 ng/mL (0.000-0.034)
[2020-02-10 16:55] LABS: Add Urine Microscopic? YES; Appearance Urine Cloudy (Clear); Bacteria Urine Trace /hpf; Bilirubin Urine Negative (Negative); Blood Urine Negative (Negative); Color Urine Amber (Yellow); Glucose Urine UA Negative (Negative); Ketones Urine Negative (Negative); Leukocyte Esterase Ur 3+ LEU/UL (Negative); Mucus Urine Few /lpf; Nitrate Urine Negative (Negative); Protein Urine 2+ mg/dL (Negative); Specific Grav Ur 1.018 (1.001-1.035); Squamous Epithelial Cell Urine Many /hpf (Few); WBC Clumps Urine Present /HPF; WBC Urine >75 /hpf
--- NOTE | 2020-02-10 19:14 | ECG_ITS ---
Measurements Intervals [place] Rate: 74 P: -4 CA: 155 QRS: -64 QRSD: 154 T: 123 QT: 429 QTc: 477 Interpretive Statements SINUS RHYTHM LEFT AXIS DEVIATION LEFT BUNDLE BRANCH BLOCK BASELINE ARTIFACT- I, II, III, AVR, AVL, AVF ABNORMAL ECG Electronically Signed On 02-11-2020 6:57:44 CDT by Uriah Richard D.O.
--- NOTE | 2020-02-10 19:44 | PM.IMHP ---
H&P: HPI History of Present Illness Date/Time: 02/10/20 19:44 Chief complaint: chest pain, choking episode Narrative: This is a pleasant 84-year-old demented female with known history of hypertension, COPD, hypothyroidism and previous stroke who presented to the hospital [facility] after having an unresponsive episode. She was found choking on a meat sandwich today at the correction and Heimlich maneuver was performed which he dislodged a piece of meat. The patient became unresponsive immediately afterwards and the staff could not feel a pulse. CPR was initiated and the patient woke up while receiving chest compressions. On arrival to the emergency room the patient is complaining of midsternal chest discomfort. She does not remember any of the details of what happened to her today. She also denies any recent fevers, chills, cough, shortness of breath, abdominal pain, nausea, vomiting, dysuria, hematuria, diarrhea, or rectal bleeding. The patient does have an extensive tobacco history and apparently she was smoking almost 2 packs of cigarettes daily up until about 3 years ago. She denies any previous history of arrhythmias or heart disease although she is known to have had a chronic systolic murmur for years. Routine labs were obtained in the ER [facility] which demonstrated a leukocytosis of 20,400 and a grossly abnormal urinalysis. no other complaints at this time. On review of the patient's medications it appears that she is on Xarelto for unknown reason and she cannot tell me why at this time. Review of Systems Review of Systems: All systems reviewed & are unremarkable except as noted in HPI and below PMFSH Past Medical History Medical History (Updated 02/10/20 @ 19:56 by Christian Hammond MD) COPD (chronic obstructive pulmonary disease) Dementia HTN (hypertension) Hypothyroidism Surgical History Surgical History (Updated 02/10/20 @ 19:49 by Christian Hammond MD) History of appendectomy Family History Family History Other Unknown family medical history Social History Social History (Updated 02/10/20 @ 19:50 by Christian Hammond MD) Smoking status: Former smoker Alcohol intake: unknown Substance use: unknown Substance use type: does not use Gender identity (if verbalized by the patient): Female Spiritual care concerns: No Comments past family medical history is unknown to the patient Meds Home Medications and Allergies Home Medications Medication Instructions Recorded Confirmed Type Lactobacillus acidoph-L.bulgar 1 tablet PO DAILY 12/04/19 02/10/20 History [Floranex] acetaminophen [Tylenol] 650 mg PO Q4H PRN 12/04/19 02/10/20 History atorvastatin 40 mg PO QPM 12/04/19 02/10/20 History fluoxetine 20 mg PO DAILY 12/04/19 02/10/20 History Xarelto 20 mg PO DAILY 12/05/19 02/10/20 History ferrous sulfate [Iron (ferrous 325 mg PO DAILY 12/05/19 02/10/20 History sulfate)] levothyroxine 125 mcg PO DAILY 12/05/19 02/10/20 History loperamide 2 mg PO PRN PRN 12/05/19 02/10/20 History magnesium hydroxide [Milk of 30 ml PO BID PRN 12/05/19 02/10/20 History Magnesia] meclizine 25 mg PO TID 12/05/19 02/10/20 History metoprolol tartrate 25 mg PO BID 12/05/19 02/10/20 History multivitamin,rq-tyju-yqxmnmrm 1 tablet PO DAILY 12/05/19 02/10/20 History pantoprazole 40 mg PO DAILY 12/05/19 02/10/20 History lorazepam 0.5 mg tablet 0.5 mg PO TID #90 tablet 01/30/20 02/10/20 Rx buspirone 5 mg PO DAILY 02/10/20 02/10/20 History memantine 5 mg PO DAILY 02/10/20 02/10/20 History Allergies Allergy/AdvReac Type Severity Reaction Status Date / Time adenosine Allergy Severe Dyspnea / Verified 02/10/20 14:03 SOB Sulfa (Sulfonamide Allergy Unknown Unknown Verified 02/10/20 14:03 Antibiotics) Vital Signs Vital Signs - 24 hr 02/10/20 13:20 02/10/20 13:45 02/10/20 14:00 Temperature 36.6 C Pulse Rate 76 71 72 Respiratory Rate 2
[2020-02-10 20:09] LABS: Troponin I 0.027 ng/mL (0.000-0.034)
--- NOTE | 2020-02-10 20:16 | ADMGEN ---
This patient, Kinjal Anderson, was admitted to IMU Room 212-01 at 1900. Patient/family oriented to hospital policies and general routines including ID bracelet, bed and alarms, visiting hours, pain management, procedures, bathroom and other care routines, personal items, smoking policy, room service/diet, and visiting hours. Valuables list has been completed. Information on how to activate the Rapid Response Team has been discussed. Patient/Family are encouraged to report perceived risks to care and to ask questions if they do not understand what they are told or what they should do.
[2020-02-10] MEDS: MORPHINE SULFATE 4 MG/ML INJ 2 MG IV PUSH (20:40)
[2020-02-10 23:36] LABS: Troponin I 0.021 ng/mL (0.000-0.034)
[2020-02-11] VITALS (17 sets, daily range): BP systolic 97–132; BP diastolic 44–67; PULSE 64–90; RESP 16–21; TEMP 35.6–36.7; O2SAT 87–99
[2020-02-11 04:55] LABS: Basophils Percent Auto 0.2 % (0.2-1.2); Eosinophils Percent Auto 0.1 % (0-4.4); Hematocrit 43.8 % (37.0-47.0); Hemoglobin 14.7 g/dL (12.0-15.0); Immature Granulocyte Absolute 0.04 K/mm3 (0.00-0.031); Immature Granulocyte Percent A 0.3 % (0-0.5); Lymphocytes Absolute Auto 1.73 K/mm3 (0.9-3.2); Lymphocytes Percent Auto 14.6 % (18.3-44.2); Mean Corpuscular HGB Conc 33.6 g/dl (32-36); Mean Corpuscular Hemoglobin 32.6 pg (26-34); Mean Corpuscular Volume 97.1 fl (80-100); Mean Platelet Volume 10.1 fl (7.4-10.4); Monocytes Absolute Auto 1.2 K/mm3 (0.1-0.6); Monocytes Percent Auto 10.4 % (2.6-8.5); Neutrophils Absolute Auto 8.8 K/mm3 (1.3-6.7); Neutrophils Percent Auto 74.4 % (45.5-73.1); Platelet Count Result 237 k/mm3 (150-375); Red Blood Count 4.51 M/mm3 (4.2-5.4); Red Cell Distribution Width 12.8 % (11.5-14.5); White Blood Count 11.9 K/mm3 (4.5-10.0)
[2020-02-11 05:07] LABS: Anion Gap 9 mmol/L (8-16); Blood Urea Nitrogen 31 mg/dL (7-17); Calcium 8.7 mg/dL (8.4-10.2); Carbon Dioxide 24 mmol/L (22-30); Chloride 106 mmol/L (98-107); Estimated CRCL calculation 36 ml/min; Estimated Glomerular Filt Rate > 60; Glucose 142 mg/dL (65-105); Potassium 4.2 mmol/L (3.4-5.0); Sodium 139 mmol/L (137-145)
--- NOTE | 2020-02-11 08:23 | WPDCN ---
Assessment and Plan Assessment and plan (1) Choking episode: Code(s): R09.89 - Other specified symptoms and signs involving the circulatory and respiratory systems Status: Resolved Assessment and Plan: Patient had episode of choking which required the Heimlich maneuver and was followed by an episode of unresponsiveness in which the intermediate personnel thought was a cardiac arrest. She responded to CPR. She has been hemodynamically stable since admission. I suspect she was simply hypotensive. She was hypoxic. Her chest x-ray suggests mild CHF versus pneumonia. I am not impressed that she has CHF or is volume overloaded. She has had no arrhythmias here. (2) Cardiac arrest with successful resuscitation: Code(s): I46.9 - Cardiac arrest, cause unspecified Status: Acute Assessment and Plan: Patient had episode of choking which lead to an episode of unresponsiveness in which the intermediate personnel thought was a cardiac arrest. She responded to CPR. She has been hemodynamically stable since admission. I suspect she was simply hypotensive 2nd to her episode of choking. She was hypoxic. Her chest x-ray suggests mild CHF versus pneumonia. I am not impressed that she has CHF or is volume overloaded. She has had no arrhythmias here. No h/o LV dysfunction; EF was 57% in 2018. Residual chest pain secondary to CPR. Mildly elevated troponins secondary to hypoxia I don't recommend further evaluation at this time. (3) Chronic anticoagulation: Code(s): Z79.01 - intermodal dispatcher (current) use of anticoagulants Status: Chronic Assessment and Plan: History of AFib and stroke per intermediate, on Xarelto. (4) Dementia: Qualifiers: Dementia type: unspecified type Dementia behavioral disturbance: without behavioral disturbance Qualified Code(s): F03.90 - Unspecified dementia without behavioral disturbance Code(s): F03.90 - Unspecified dementia without behavioral disturbance Status: Chronic (5) LBBB (left bundle branch block): Code(s): I44.7 - Left bundle-branch block, unspecified Status: Acute Assessment and Plan: Chronic LBBB (6) HTN (hypertension): Qualifiers: Hypertension type: unspecified Qualified Code(s): I10 - Essential (primary) hypertension Code(s): I10 - Essential (primary) hypertension Status: Chronic Assessment and Plan: Chronic HTN. HPI Data of Consult Date/Time: 02/11/20 08:23 Requesting Physician: Cherri Rodriguez PA-C Primary Care Provider: [facility] [employer] HANDYMAN PHYSICIAN Consult Narrative Narrative: Date of service: 02/11/2020 Kinjal Anderson is a 84 year old female number asked to see at the request of Dr. Bosch for advice and opinion regarding a cardiac arrest which occurred after choking episode yesterday. The patient has dementia and [facility] She is a poor historian. Apparently yesterday she choked on meat sandwich requiring a Heimlich removed maneuver. After she spit out the food debris, she apparently became unresponsive and had to have CPR at the intermediate, then regained consciousness. On the arrival of EMS, her blood pressure was 155/110, pulse is 86 and O2 sat was 85%. She complained of chest pain on arrival To the ER. Her troponins are: 0.017, 0.027 and 0.021. Her EKG on admission showed sinus rhythm with a chronic left bundle branch block. Chest x-ray showed mild interstitial edema. She has been hemodynamically stable since admission with no arrhythmias. She had an elevated WBC adn has been started on an antibiotic for possible pneumonia. The patient has a history of hypertension in COPD but apparently no history of heart disease although she is taking Xarelto
[2020-02-11] MEDS: ASPIRIN 300 MG SUPPOSITORY RECTAL (09:11)
--- NOTE | 2020-02-11 12:03 | PCSTNOTE ---
Please refer to the Bedside Swallow Evaluation in the EMR. Please note, silent aspiration cannot be ruled out at bedside.
[2020-02-11] MEDS: FLUoxetine HCL 20 MG CAPSULE PO (12:27)
[2020-02-11] MEDS: busPIRone HCL 5 MG TABLET PO (12:27)
[2020-02-11] MEDS: FERROUS SULFATE 324 MG TABLET PO (12:27)
[2020-02-11] MEDS: LORazepam 0.5 MG TABLET PO ×2 (12:27→18:16)
[2020-02-11] MEDS: PANTOPRAZOLE 40 MG TABLET PO (12:27)
[2020-02-11] MEDS: ACIDOPHILUS/BULGARICUS CHEWABLE TABLET 1 TABLET PO (12:27)
[2020-02-11] MEDS: MEMANTINE 5 MG TABLET PO (12:27)
[2020-02-11] MEDS: MECLIZINE HCL 25 MG TABLET PO ×2 (12:27→18:17)
[2020-02-11] MEDS: METOPROLOL TARTRATE 25 MG TABLET PO ×2 (12:27→19:40)
[2020-02-11] MEDS: LEVOTHYROXINE SODIUM 125 MCG TABLET PO (12:27)
[2020-02-11] MEDS: ACETAMINOPHEN 325 MG TABLET 650 MG PO (12:28)
--- NOTE | 2020-02-11 14:02 | PM.IMPN ---
Progress Note: A&P Assessment and Plan (1) Choking episode: Code(s): R09.89 - Other specified symptoms and signs involving the circulatory and respiratory systems Status: Resolved Assessment and Plan: Believe the episode yesterday began by the patient having a choking episode that caused her become hypoxic and have a syncopal episode. The patient had a Heimlich maneuver done twice without success. The patient was then placed on the ground where she had chest compressions completed which dislodged the food. She had a swallow study this morning with speech and they found her to have aspiration with liquids. They recommend her being on a pureed diet and severely thickened liquids. Speech will continue working with her and hopefully they can advance her diet with the techniques they will give her. I will also order an barium swallow to further evaluate for any acute strictures causing her choking episode that would require an EGD by GI provider. Continue monitoring the patient. Advance diet as recommended by speech. (2) Cardiac arrest with successful resuscitation: Code(s): I46.9 - Cardiac arrest, cause unspecified Status: Acute Assessment and Plan: Patient has been admitted to IMU, bed rest, telemetry, post cardiac arrest routine care. Cardiology was consulted and does not believe that this was a cardiac arrest. Her chest x-ray demonstrated mild CHF versus pneumonia. He did not feel that she had she CHF or volume overloaded. Telemetry shows normal sinus rhythm with a heart rate of 91 beats per minute, with occasional PACs. No acute arrhythmias. believe that the mildly elevated troponins were secondary to her hypoxia. Cardiology does not recommend further evaluation at this time. Continue monitoring the patient. Will discontinue her telemetry at this time. (3) Acute and chronic respiratory failure with hypoxia: Code(s): J96.21 - Acute and chronic respiratory failure with hypoxia Status: Acute Assessment and Plan: Patient is found to be hypoxic and on 91% via nasal cannula at 2 L. she does not feel short of breath and denies any coughing. Could be secondary to pain from chest compressions and not willing to take a deep breath verses pneumonia developing from aspiration with liquids verses pulmonary edema which was found on initial chest x-ray. Will repeat chest x-ray in the morning continue monitoring her respiratory status. Ordered incentive spirometer for use and scheduled pain medications Educated the patient she has take deep breaths to prevent development of pneumonia She otherwise appears euvolemic at this time Continue monitoring patient's respiratory status and oxygenation. Continue weaning as tolerated. (4) Abnormal urinalysis: Code(s): R82.90 - Unspecified abnormal findings in urine Status: Acute Assessment and Plan: Abnormal urinalysis suspicious for UTI. Patient was started on IV ceftriaxone. Urine culture still pending. Patient denies any urinary symptoms but does have a history of frequent UTIs in the past. Continue monitoring and waiting for urine culture results. (5) Leukocytosis: Code(s): D72.829 - Elevated white blood cell count, unspecified Status: Acute Assessment and Plan: likely secondary to acute UTI versus inflammation from chest compressions. Leukocytosis improved from [id number] today along with the neutrophil count. Continue IV antibiotics for UTI Monitor CBC. (6) Chest wall pain: Code(s): R07.89 - Other chest pain Status: Acute Assessment and Plan: secondary to chest compressions Will schedule Tylenol every 6 hours to help better control her p
[2020-02-11] MEDS: RIVAROXABAN 20 MG TABLET PO (18:16)
[2020-02-11] MEDS: ATORVASTATIN 40 MG TABLET PO (18:17)
[2020-02-11] MEDS: ACETAMINOPHEN 500 MG TABLET 1000 MG PO ×2 (18:17→23:42)
[2020-02-12] VITALS (13 sets, daily range): BP systolic 136–145; BP diastolic 51–66; PULSE 53–94; RESP 16–24; TEMP 35.6–36.1; O2SAT 90–98
[2020-02-12 04:50] LABS: Basophils Absolute Auto 0.1 K/mm3 (0.0-0.1); Basophils Percent Auto 0.5 % (0.2-1.2); Eosinophils Absolute Auto 0.2 K/mm3 (0-0.3); Eosinophils Percent Auto 1.5 % (0-4.4); Hematocrit 40.5 % (37.0-47.0); Hemoglobin 13.2 g/dL (12.0-15.0); Immature Granulocyte Absolute 0.05 K/mm3 (0.00-0.031); Immature Granulocyte Percent A 0.4 % (0-0.5); Lymphocytes Absolute Auto 1.87 K/mm3 (0.9-3.2); Mean Corpuscular HGB Conc 32.6 g/dl (32-36); Mean Corpuscular Hemoglobin 32.2 pg (26-34); Mean Corpuscular Volume 98.8 fl (80-100); Mean Platelet Volume 10.4 fl (7.4-10.4); Monocytes Absolute Auto 1.4 K/mm3 (0.1-0.6); Monocytes Percent Auto 11.9 % (2.6-8.5); Neutrophils Absolute Auto 8.1 K/mm3 (1.3-6.7); Neutrophils Percent Auto 69.7 % (45.5-73.1); Platelet Count Result 207 k/mm3 (150-375); White Blood Count 11.7 K/mm3 (4.5-10.0)
[2020-02-12 05:13] LABS: Alanine Aminotransferase 22 U/L (4-35); Albumin Level 3.6 g/dL (3.5-5.1); Alkaline Phosphatase 85 U/L (38-126); Anion Gap 6 mmol/L (8-16); Aspartate Amino Transferase 36 U/L (14-36); Bilirubin,Total 0.4 mg/dL (0.2-1.3); Blood Urea Nitrogen 40 mg/dL (7-17); Calcium 8.8 mg/dL (8.4-10.2); Carbon Dioxide 27 mmol/L (22-30); Chloride 105 mmol/L (98-107); Estimated CRCL calculation 29 ml/min; Estimated Glomerular Filt Rate 48; Glucose 119 mg/dL (65-105); Potassium 3.9 mmol/L (3.4-5.0); Sodium 138 mmol/L (137-145)
[2020-02-12] MEDS: LEVOTHYROXINE SODIUM 125 MCG TABLET PO (05:16)
[2020-02-12] MEDS: ACETAMINOPHEN 500 MG TABLET 1000 MG PO ×4 (05:16→23:49)
[2020-02-12] MEDS: busPIRone HCL 5 MG TABLET PO (09:41)
[2020-02-12] MEDS: ACIDOPHILUS/BULGARICUS CHEWABLE TABLET 1 TABLET PO (09:41)
[2020-02-12] MEDS: FERROUS SULFATE 324 MG TABLET PO (09:41)
[2020-02-12] MEDS: METOPROLOL TARTRATE 25 MG TABLET PO ×2 (09:41→20:58)
[2020-02-12] MEDS: PANTOPRAZOLE 40 MG TABLET PO (09:42)
[2020-02-12] MEDS: MECLIZINE HCL 25 MG TABLET PO ×3 (09:42→17:25)
[2020-02-12] MEDS: LORazepam 0.5 MG TABLET PO ×3 (09:42→17:24)
[2020-02-12] MEDS: LACTATED RINGERS 1,000 ML 50 ML IV CONT (09:42)
[2020-02-12] MEDS: FLUoxetine HCL 20 MG CAPSULE PO (09:42)
[2020-02-12] MEDS: MEMANTINE 5 MG TABLET PO (09:42)
[2020-02-12 14:25] LABS: SARS-CoV-2 RNA PCR Negative
--- NOTE | 2020-02-12 15:36 | PM.IMPN ---
Progress Note: A&P Assessment and Plan (1) Choking episode: Code(s): R09.89 - Other specified symptoms and signs involving the circulatory and respiratory systems Status: Resolved Assessment and Plan: Believe the episode yesterday began by the patient having a choking episode that caused her become hypoxic and have a syncopal episode. The patient had a Heimlich maneuver done twice without success. The patient was then placed on the ground where she had chest compressions completed which dislodged the food. She had a swallow study this morning with speech and they found her to have aspiration with liquids. They recommend her being on a pureed diet and severely thickened liquids. Speech will continue working with her and hopefully they can advance her diet with the techniques they will give her. I had ordered an esophagram but the patient was unable to tolerate the barium and they tried multiple times. Will have the patient continue working with Speech. Continue monitoring the patient. Advance diet as recommended by speech. (2) Cardiac arrest with successful resuscitation: Code(s): I46.9 - Cardiac arrest, cause unspecified Status: Acute Assessment and Plan: Patient has been admitted to IMU, bed rest, telemetry, post cardiac arrest routine care. Cardiology was consulted and does not believe that this was a cardiac arrest. Her chest x-ray demonstrated mild CHF versus pneumonia. He did not feel that she had she CHF or volume overloaded. Telemetry shows normal sinus rhythm with a heart rate of 88 beats per minute, with occasional PACs. No acute arrhythmias. believe that the mildly elevated troponins were secondary to her hypoxia. Cardiology does not recommend further evaluation at this time. Continue monitoring the patient. Will discontinue her telemetry at this time. (3) Acute and chronic respiratory failure with hypoxia: Code(s): J96.21 - Acute and chronic respiratory failure with hypoxia Status: Acute Assessment and Plan: Patient is found to be hypoxic and on 91% via nasal cannula at 2 L. she does not feel short of breath and denies any coughing. Could be secondary to pain from chest compressions and not willing to take a deep breath verses pneumonia developing from aspiration with liquids verses pulmonary edema which was found on initial chest x-ray. Chest x-ray showed chronic changes but cannot completely exclude mild pulmonary edema. Ordered incentive spirometer for use and scheduled pain medications Educated the patient she has take deep breaths to prevent development of pneumonia She otherwise appears euvolemic at this time Continue monitoring patient's respiratory status and oxygenation. Continue weaning as tolerated. (4) Abnormal urinalysis: Code(s): R82.90 - Unspecified abnormal findings in urine Status: Acute Assessment and Plan: Abnormal urinalysis suspicious for UTI Urine culture showed E. coli and sensitive to IV ceftriaxone Patient denies any urinary symptoms but does have a history of frequent UTIs in the past. Continue monitoring and waiting for urine culture results. (5) Leukocytosis: Code(s): D72.829 - Elevated white blood cell count, unspecified Status: Acute Assessment and Plan: likely secondary to acute UTI versus inflammation from chest [place]ions[place] [address] today and neutrophil count normalized. Continue IV antibiotics for UTI Monitor CBC. (6) Chest wall pain: Code(s): R07.89 - Other chest pain Status: Acute Assessment and Plan: secondary to chest compressions Will schedule Tylenol every 6 hours to help better control her pa
[2020-02-12] MEDS: ATORVASTATIN 40 MG TABLET PO (17:24)
[2020-02-12] MEDS: RIVAROXABAN 20 MG TABLET PO (17:25)
[2020-02-13] VITALS (9 sets, daily range): BP systolic 117–162; BP diastolic 56–90; PULSE 52–80; RESP 12–20; TEMP 36.3–37.1; O2SAT 91–100
[2020-02-13 05:11] LABS: Hemoglobin 13.6 g/dL (12.0-15.0); Mean Corpuscular HGB Conc 33.2 g/dl (32-36); Mean Corpuscular Volume 96.5 fl (80-100); Mean Platelet Volume 10.4 fl (7.4-10.4); Platelet Count Result 202 k/mm3 (150-375); Red Blood Count 4.25 M/mm3 (4.2-5.4); Red Cell Distribution Width 12.9 % (11.5-14.5)
[2020-02-13 05:27] LABS: Anion Gap 7 mmol/L (8-16); Blood Urea Nitrogen 33 mg/dL (7-17); Calcium 9.2 mg/dL (8.4-10.2); Carbon Dioxide 24 mmol/L (22-30); Chloride 108 mmol/L (98-107); Estimated CRCL calculation 51 ml/min; Estimated Glomerular Filt Rate > 60; Glucose 94 mg/dL (65-105); Potassium 3.9 mmol/L (3.4-5.0); Sodium 139 mmol/L (137-145)
[2020-02-13] MEDS: ACETAMINOPHEN 500 MG TABLET 1000 MG PO ×3 (05:43→17:04)
[2020-02-13] MEDS: LEVOTHYROXINE SODIUM 125 MCG TABLET PO (05:44)
[2020-02-13] MEDS: PANTOPRAZOLE 40 MG TABLET PO (09:40)
[2020-02-13] MEDS: busPIRone HCL 5 MG TABLET PO (09:40)
[2020-02-13] MEDS: FLUoxetine HCL 20 MG CAPSULE PO (09:40)
[2020-02-13] MEDS: ACIDOPHILUS/BULGARICUS CHEWABLE TABLET 1 TABLET PO (09:40)
[2020-02-13] MEDS: FERROUS SULFATE 324 MG TABLET PO (09:40)
[2020-02-13] MEDS: MEMANTINE 5 MG TABLET PO (09:41)
[2020-02-13] MEDS: MECLIZINE HCL 25 MG TABLET PO ×3 (09:41→17:04)
[2020-02-13] MEDS: METOPROLOL TARTRATE 25 MG TABLET PO ×2 (09:42→21:40)
[2020-02-13] MEDS: LORazepam 0.5 MG TABLET PO ×3 (09:55→17:04)
[2020-02-13] MEDS: AMOXICILLIN/CLAVULANATE K 875-125 MG TAB 1 TABLET PO ×2 (11:52→21:39)
--- NOTE | 2020-02-13 13:51 | PC.NURSE ---
This patient, Kinjal Anderson, was transferred to [[id number] ] on 02/13/20 at 1351. Personal belongings sent with patient. Report given to [ANDREA Smith ]. Appropriate documentation sent with patient.
--- NOTE | 2020-02-13 14:01 | PC.NURSE ---
Pt transferred from IMU room 212. Belongings list verified. Patient oriented to the room.
--- NOTE | 2020-02-13 15:30 | PM.DS ---
DS: Admitting Diagnosis Admitting Diagnosis Admitting Diagnosis: chest pain, choking episode DS: Discharge Diagnosis Discharge Diagnosis (1) Choking episode: Code(s): R09.89 - Other specified symptoms and signs involving the circulatory and respiratory systems Status: Resolved Assessment and Plan: Believe the episode yesterday began by the patient having a choking episode that caused her become hypoxic and have a syncopal episode. The patient had a Heimlich maneuver done twice without success. The patient was then placed on the ground where she had chest compressions completed which dislodged the food. She had a swallow study this morning with speech and they found her to have aspiration with liquids. They recommend her being on a pureed diet and severely thickened liquids. Speech will continue working with her and hopefully they can advance her diet with the techniques they will give her. I had ordered an esophagram but the patient was unable to tolerate the barium and they tried multiple times. Patient has been otherwise eating without any issues so we will continue her pureed diet and severely thickened liquids. Continue with speech therapy at the alf (2) Cardiac arrest with successful resuscitation: Code(s): I46.9 - Cardiac arrest, cause unspecified Status: Acute Assessment and Plan: Patient has been admitted to IMU, bed rest, telemetry, post cardiac arrest routine care. Cardiology was consulted and does not believe that this was a cardiac arrest. Her chest x-ray demonstrated mild CHF versus pneumonia. He did not feel that she had she CHF or volume overloaded. Believe that the mildly elevated troponins were secondary to her hypoxia. Cardiology does not recommend further evaluation at this time. (3) Acute and chronic respiratory failure with hypoxia: Code(s): J96.21 - Acute and chronic respiratory failure with hypoxia Status: Acute Assessment and Plan: Patient is found to be hypoxic and on 91% via nasal cannula at 2 L. she does not feel short of breath and denies any coughing. Could be secondary to pain from chest compressions and not willing to take a deep breath verses pneumonia developing from aspiration with liquids verses pulmonary edema which was found on initial chest x-ray. Chest x-ray showed chronic changes but cannot completely exclude mild pulmonary edema. Ordered incentive spirometer for use and scheduled pain medications Educated the patient she has take deep breaths to prevent development of pneumonia The patient was taken off oxygen and her saturation was between 90 and 88%. Patient denied any shortness of breath at that time. We placed her on 1 L of oxygen will continue monitoring her saturations. The patient's daughter states she is on oxygen as needed at the nursing facility but she has not needed it in a while. Will have them continue monitoring her oxygen and wean as tolerated to keep oxygen between 90-95%. (4) Abnormal urinalysis: Code(s): R82.90 - Unspecified abnormal findings in urine Status: Acute Assessment and Plan: Abnormal urinalysis suspicious for UTI Urine culture showed E. coli and sensitive to IV ceftriaxone Patient denies any urinary symptoms but does have a history of frequent UTIs in the past. Will discharge the patient on Augmentin and probiotics (5) Leukocytosis: Code(s): D72.829 - Elevated white blood cell count, unspecified Status: Acute Assessment and Plan: likely secondary to acute UTI versus inflammation from chest [place] [id number] today and neutrophil count normalized. Will discharge patient on Augmentin for UTI as well as some coverage for possible aspirat
[2020-02-13] MEDS: RIVAROXABAN 20 MG TABLET PO (17:04)
[2020-02-13] MEDS: ATORVASTATIN 40 MG TABLET PO (17:05)
== END 2020-02-13 21:58 | DRG 205 ==
LOC: ANHED 18:04 → ANHIMU 18:25 → ANH2MED 02-13 15:54 → ANHIMU 02-17 17:01
PROVIDERS: Family Medicine; Physician Assistant; Admitting Provider Family Medicine; Emergency Provider Emergency Medicine; Visit Provider Family Medicine
DX: T17.820A Food in other parts of respiratory tract causing asphyxiation, initial encounter (principal); I46.8 Cardiac arrest due to other underlying condition; J96.21 Acute and chronic respiratory failure with hypoxia; I48.20 Chronic atrial fibrillation, unspecified; N39.0 Urinary tract infection, site not specified; B96.20 Unspecified Escherichia coli [E. coli] as the cause of diseases classified elsewhere; Z20.828 Contact with and (suspected) exposure to other viral communicable diseases; F03.90 Unspecified dementia, unspecified severity, without behavioral disturbance, psychotic disturbance, mood disturbance, and anxiety; J44.9 Chronic obstructive pulmonary disease, unspecified; D72.829 Elevated white blood cell count, unspecified; X58.XXXA Exposure to other specified factors, initial encounter; I10 Essential (primary) hypertension; R07.89 Other chest pain; E03.9 Hypothyroidism, unspecified; I44.7 Left bundle-branch block, unspecified; Z86.73 Personal history of transient ischemic attack (TIA), and cerebral infarction without residual deficits; Z87.891 Personal history of nicotine dependence; Z79.01 Long term (current) use of anticoagulants; Z86.711 Personal history of pulmonary embolism
CPT/HCPCS: 36415; 36600; 51701; 70450; 71045; 80048; 80053; 81001; 82805; 84484; 85025; 85027; 85610; 85730; 87077; 87086; 87088; 87186; 87635; 92526; 92611; 93005; 96365; 96375; 99285; A9270; C9803; G0378; J0696; J2270; J7120; U0003

== ENCOUNTER 2020-08-18 16:05 | Emergency (ER) | payer MEDICARE, SELFPAY ==
[2020-08-18] VITALS (29 sets, daily range): BP systolic 74–109; BP diastolic 34–70; PULSE 67–72; RESP 16–30; TEMP 36.4; O2SAT 73–99
[2020-08-18 16:46] LABS: Basophils Absolute Auto 0.1 K/mm3 (0.0-0.1); Basophils Percent Auto 0.4 % (0.2-1.2); Hematocrit 35.8 % (37.0-47.0); Immature Granulocyte Percent A 0.6 % (0-0.5); Lymphocytes Absolute Auto 0.98 K/mm3 (0.9-3.2); Lymphocytes Percent Auto 6.2 % (18.3-44.2); Mean Corpuscular HGB Conc 33.5 g/dl (32-36); Mean Corpuscular Hemoglobin 32.3 pg (26-34); Mean Corpuscular Volume 96.2 fl (80-100); Mean Platelet Volume 9.5 fl (7.4-10.4); Monocytes Absolute Auto 0.6 K/mm3 (0.1-0.6); Neutrophils Absolute Auto 13.9 K/mm3 (1.3-6.7); Neutrophils Percent Auto 88.8 % (45.5-73.1); Platelet Count Result 226 k/mm3 (150-375); Red Blood Count 3.72 M/mm3 (4.2-5.4); Red Cell Distribution Width 14.1 % (11.5-14.5); White Blood Count 15.7 K/mm3 (4.5-10.0)
[2020-08-18 16:59] LABS: Alanine Aminotransferase 21 U/L (4-35); Albumin Level 3.6 g/dL (3.5-5.1); Alkaline Phosphatase 85 U/L (38-126); Anion Gap 10 mmol/L (8-16); Aspartate Amino Transferase 39 U/L (14-36); Bilirubin,Total 0.3 mg/dL (0.2-1.3); Blood Urea Nitrogen 20 mg/dL (7-17); Calcium 8.6 mg/dL (8.4-10.2); Carbon Dioxide 20 mmol/L (22-30); Chloride 104 mmol/L (98-107); Estimated CRCL calculation 27 ml/min; Estimated Glomerular Filt Rate 47; Glucose 117 mg/dL (65-105); Potassium 4.4 mmol/L (3.4-5.0); Sodium 134 mmol/L (137-145)
--- NOTE | 2020-08-18 19:20 | ED.GENADULT ---
HPI - General Adult General Chief complaint: Vaginal Bleeding Stated complaint: vaginal bleeding x 2 weeks Time Seen by Provider: 08/18/20 18:10 Source: patient and family (daughter Jany) Mode of arrival: ambulatory Limitations: no limitations History of Present Illness HPI narrative: Patient presents with chief complaint of vaginal bleeding and occasional cramping for almost 2 weeks. Patient saw her MANAGER ETL Dr. Solomon on the and had a endometrial biopsy. She has also had pelvic ultrasounds performed. Patient daughter Ana states that she received a call from [employer] today stating that she had more bleeding than normal so she needed to come to the emergency department. The patient denies any pain at this time. Patient is on Xarelto daily. Patient denies chest pain, shortness of breath, nausea, vomiting, dizziness or headache. Patient denies any other symptoms. Patient states she was also tested for UTI and was found negative. She denies any urinary symptoms Related Data Home Medications Medication Instructions Recorded Confirmed acetaminophen [Tylenol] 650 mg PO Q4H PRN 12/04/19 02/10/20 atorvastatin 40 mg PO QPM 12/04/19 02/10/20 fluoxetine 20 mg PO DAILY 12/04/19 02/10/20 Xarelto 20 mg PO DAILY 12/05/19 02/10/20 ferrous sulfate [Iron (ferrous 325 mg PO DAILY 12/05/19 02/10/20 sulfate)] levothyroxine 125 mcg PO DAILY 12/05/19 02/10/20 loperamide 2 mg PO PRN PRN 12/05/19 02/10/20 magnesium hydroxide [Milk of 30 ml PO BID PRN 12/05/19 02/10/20 Magnesia] meclizine 25 mg PO TID 12/05/19 02/10/20 metoprolol tartrate 25 mg PO BID 12/05/19 02/10/20 multivitamin,pk-xvei-xpaopory 1 tablet PO DAILY 12/05/19 02/10/20 pantoprazole 40 mg PO DAILY 12/05/19 02/10/20 buspirone 5 mg PO DAILY 02/10/20 02/10/20 memantine 5 mg PO DAILY 02/10/20 02/10/20 amlodipine 2.5 mg tablet 2.5 mg PO DAILY 08/14/20 artifi.tears(hypromellose)(PF) 0.3 1 drp EACH EYE TID 08/14/20 % eye drops oxygen-air delivery systems #1 08/14/20 Allergies Allergy/AdvReac Type Severity Reaction Status Date / Time adenosine Allergy Severe Dyspnea / Verified 08/18/20 18:15 SOB Sulfa (Sulfonamide Allergy Unknown Unknown Verified 08/18/20 18:15 Antibiotics) Review of Systems Review of Systems: Narrative: CONSTITUTIONAL: Denies fever, chills, or sweats. EYES: Denies visual changes, redness, or discharge. ENT: Denies rhinorrhea, congestion, sore throat, or otalgia. CARDIOVASCULAR: Denies chest pain, palpitations, or edema. RESPIRATORY: Denies cough or dyspnea. GASTROINTESTINAL: Denies abdominal pain, nausea, vomiting, or diarrhea. GENITOURINARY: Reports vaginal bleeding denies dysuria or hematuria. SKIN: Denies rash or itching. MUSCULOSKELETAL: Denies back pain, joint pain, or myalgia. NEUROLOGIC: Denies headache, numbness, dizziness, or weakness. PSYCHIATRIC: Denies anxiety or depression. FORMERLY [facility] Past Medical History Medical History Alzheimer's dementia Atrial fibrillation per [place] records Chronic gastric ulcer without hemorrhage and without perforation Constipation COPD (chronic obstructive pulmonary disease) Cough Dementia Diarrhea Dry eye syndrome Dysphagia Gastro-esophageal reflux disease without esophagitis Generalized anxiety disorder H/O: stroke Per [place] notes History of urinary tract infection HTN (hypertension) Hyperlipidemia Hypothyroidism Iron (Fe) deficiency anemia LBBB (left bundle branch block) Legal blindness, as defined in [place] Other chest pain Other malaise Paroxysmal atrial fibrillation Personal history of COVID-19 Personal history of pulmonary embolism Polyosteoarthritis Sick sinus syndrome Unspecified psychosis not due to a substance or known physiological condition Surgical History Surgical History History of appendectomy Family History Family History (Reviewed 08/14/20 @
--- NOTE | 2020-08-18 20:07 | PC.NURSE ---
made contact with [employer] and [facility] to transfer patient back home to [facility]. both companies declined. [facility] accepted with eta [phone]
[2020-08-18] MEDS: SODIUM CHLORIDE 0.9% IV 1,000 ML 999 ML IV CONT (20:35)
--- NOTE | 2020-08-19 00:06 | PC.NURSE ---
ems eta [id number]
--- NOTE | 2020-08-19 00:09 | PC.NURSE ---
contacted [employer] about a new eta [phone]
[2020-08-19 00:47] VITALS: BP 117/55; PULSE 67; RESP 22; O2SAT 95
[2020-08-19 01:47] VITALS: BP 127/58; PULSE 70; RESP 18; O2SAT 95
[2020-08-19 03:04] VITALS: BP 124/56; PULSE 72; RESP 20; O2SAT 95
--- NOTE | 2020-08-19 03:52 | PC.NURSE ---
[facility] called to inform me that transporation will be pushed back until [id number]
[2020-08-19 03:54] VITALS: BP 113/60; PULSE 77; RESP 18; O2SAT 95
[2020-08-19 04:48] VITALS: BP 118/52; PULSE 71; RESP 22; O2SAT 95
--- NOTE | 2020-08-19 05:53 | PC.NURSE ---
[facility] called with a new eta of [id number]
--- NOTE | 2020-08-19 06:33 | PC.NURSE ---
[facility] has arrived
== END 2020-08-19 06:20 ==
PROVIDERS: Emergency Medicine; Emergency Provider Emergency Medicine; PCP Family Medicine
DX: N95.0 Postmenopausal bleeding (principal); I48.0 Paroxysmal atrial fibrillation; G30.9 Alzheimer's disease, unspecified; F02.80 Dementia in other diseases classified elsewhere, unspecified severity, without behavioral disturbance, psychotic disturbance, mood disturbance, and anxiety; J44.9 Chronic obstructive pulmonary disease, unspecified; E78.5 Hyperlipidemia, unspecified; I10 Essential (primary) hypertension; Z86.16 Personal history of COVID-19; D50.9 Iron deficiency anemia, unspecified; M19.90 Unspecified osteoarthritis, unspecified site; H54.8 Legal blindness, as defined in USA; H04.129 Dry eye syndrome of unspecified lacrimal gland; K21.9 Gastro-esophageal reflux disease without esophagitis; I49.5 Sick sinus syndrome; Z86.73 Personal history of transient ischemic attack (TIA), and cerebral infarction without residual deficits; Z86.711 Personal history of pulmonary embolism; Z87.440 Personal history of urinary (tract) infections; Z87.891 Personal history of nicotine dependence; Z79.01 Long term (current) use of anticoagulants
CPT/HCPCS: 36415; 80053; 85025; 86850; 86900; 86901; 96360; 99284; J7030

== ENCOUNTER 2021-05-03 16:35 | Emergency (ER) | payer MEDICARE, SELFPAY ==
--- NOTE | ~2021-05-03 | XR_ITS ---
EXAMINATION: XR chest 1V EXAM DATE: 05/03/2021 17:36 INDICATION: Altered mental status, history atrial fibrillation, hypertension. TECHNIQUE: Portable AP frontal chest x-ray was obtained. Comparison is made to prior examination from 02/12/2020. FINDINGS: Some indistinct basilar reticulation, possible mild pulmonary edema versus chronic intersti tial lung disease. No confluent consolidation, pneumothorax or pleural effusion suspected. The cardio mediastinal silhouette is prominent but magnified on this AP technique. There is aortic arteriosclero sis. The bones are osteopenic. There are bony degenerative changes. Left shoulder replacement hardwa re. Left acromioclavicular surgical changes. IMPRESSION: 1. Prominent basilar reticulation, mild edema or chronic interstitial lung disease. 2. No confluent consolidation. Reviewed, dictated and finalized at location A. ENSATION ADMINISTRATOR IMPRESSION: 1. Prominent basilar reticulation, mild edema or chronic interstitial lung dis ease. 2. No confluent consolidation.
--- NOTE | ~2021-05-03 | CT_ITS ---
EXAMINATION: CT brain wo [facility] EXAM DATE: 05/03/2021 17:31 INDICATION: Altered mental status, confusion, unresponsive. TECHNIQUE: Spiral CT of the head was performed without contrast. Axial, coronal and sagittal images were reviewed. The dose-length product (DLP) for this examination was 605.33 mGy-cm. The exposure w as tailored according to patient size, and iterative reconstruction (ASIR) was used as additional dos e reduction technique. Comparison is made to prior examination from 02/10/2020. FINDINGS: There is no acute intraparenchymal hemorrhage. No evidence of intraparenchymal brain mass lesion. There our old small bilateral periventricular infarctions. Old punctate right thalamic and ba kan ganglia lacunar infarctions. There is left choroidal fissure cyst. No evidence of acute infarctio n. Please note that initial head CT has limited sensitivity for small or acute infarctions. There i s moderate periventricular and subcortical hypodensity, nonspecific but probably related to small ves rick ischemic disease. There is moderate prominence of the sulci and ventricles related to cerebral atrophy. There is intracranial carotid arteriosclerosis. There are no extra-axial collections. Th ere is no mass effect or midline shift. Patient has had bilateral ocular lens surgery. Soft tissue is unremarkable. The visualized sinuses and mastoid air cells are well aerated. IMPRESSION: 1. No acute intracranial findings. 2. Chronic age related findings. 3. Small bilateral old lacunar, periventricular infarctions. Reviewed, dictated and finalized at location A. [employer]
[2021-05-03 16:35] VITALS: BP 158/97; PULSE 66; RESP 17; TEMP 36.6; O2SAT 96
[2021-05-03 17:37] LABS: Glucose Point of Care 96 mg/dl (65-105)
[2021-05-03 17:44] VITALS: BP 159/91; PULSE 73; RESP 18; O2SAT 96
[2021-05-03 18:15] VITALS: BP 159/79; PULSE 59; RESP 15; O2SAT 100
--- NOTE | 2021-05-03 18:22 | PC.NURSE ---
Attempted IV access x2. unsuccessful. Able to get most of blood. unable to get lactic acid and 2nd set of cultures
[2021-05-03 18:28] LABS: Basophils Absolute Auto 0.1 K/mm3 (0.0-0.1); Basophils Percent Auto 0.5 % (0.2-1.2); Eosinophils Absolute Auto 0.3 K/mm3 (0-0.3); Hematocrit 50.1 % (37.0-47.0); Hemoglobin 16.5 g/dL (12.0-15.0); Immature Granulocyte Absolute 0.03 K/mm3 (0.00-0.031); Immature Granulocyte Percent A 0.3 % (0-0.5); Lymphocytes Absolute Auto 1.78 K/mm3 (0.9-3.2); Lymphocytes Percent Auto 17.6 % (18.3-44.2); Mean Corpuscular HGB Conc 32.9 g/dl (32-36); Mean Corpuscular Hemoglobin 32.5 pg (26-34); Mean Corpuscular Volume 98.8 fl (80-100); Mean Platelet Volume 10.2 fl (7.4-10.4); Monocytes Absolute Auto 0.6 K/mm3 (0.1-0.6); Monocytes Percent Auto 5.5 % (2.6-8.5); Neutrophils Absolute Auto 7.4 K/mm3 (1.3-6.7); Neutrophils Percent Auto 73.1 % (45.5-73.1); Platelet Count Result 289 k/mm3 (150-375); Red Blood Count 5.07 M/mm3 (4.2-5.4); Red Cell Distribution Width 13.2 % (11.5-14.5); White Blood Count 10.1 K/mm3 (4.5-10.0)
[2021-05-03 18:36] LABS: INR 1.5; Prothrombin Time 17.6 Seconds (11.1-14.7)
[2021-05-03 18:43] LABS: Alanine Aminotransferase 26 U/L (4-35); Albumin Level 4.8 g/dL (3.5-5.1); Alkaline Phosphatase 122 U/L (38-126); Anion Gap 13 mmol/L (8-16); Aspartate Amino Transferase 47 U/L (14-36); Bilirubin,Total 0.6 mg/dL (0.2-1.3); Blood Urea Nitrogen 23 mg/dL (7-17); Calcium 9.9 mg/dL (8.4-10.2); Carbon Dioxide 20 mmol/L (22-30); Chloride 107 mmol/L (98-107); Estimated CRCL calculation 34 ml/min; Estimated Glomerular Filt Rate 60; Glucose 112 mg/dL (65-110); Potassium 4.3 mmol/L (3.4-5.0); Sodium 140 mmol/L (137-145)
[2021-05-03 18:55] LABS: Troponin I < 0.012 ng/mL (0.000-0.034)
[2021-05-03 19:59] LABS: Add Urine Microscopic? YES; Appearance Urine Cloudy (Clear); Bacteria Urine Trace /hpf; Bilirubin Urine Negative (Negative); Blood Urine 1+ (Negative); Budding Yeast Urine Present /hpf; Color Urine Yellow (Yellow); Glucose Urine UA Negative (Negative); Ketones Urine Negative (Negative); Leukocyte Esterase Ur 3+ LEU/UL (Negative); Mucus Urine Rare /lpf; Nitrate Urine Negative (Negative); Protein Urine 2+ mg/dL (Negative); Squamous Epithelial Cell Urine Rare /hpf (Few); Urobilinogen Urine Negative mg/dL (<2.0); WBC Clumps Urine Present /HPF; WBC Urine >75 /hpf
[2021-05-03] MEDS: cefTRIAXone 1 GM VIAL IM (20:58)
[2021-05-03] MEDS: LIDOCAINE HCL 1% LOCAL INJ 20 ML VIAL (20:58)
--- NOTE | 2021-05-03 21:07 | ED.AMS ---
HPI - Altered Mental Status General Chief Complaint: Altered Mental Status Stated Complaint: AMS Time Seen by Provider: 05/03/21 16:38 Source: family and EMS Mode of arrival: EMS Limitations: altered mental status History of Present Illness HPI narrative: 85-year-old with a history of dementia, legally blind, hypertension paroxysmal atrial fibrillation, COPD was [facility] in from a [facility] with altered mental status. As per the daughter who is at the bedside patient is usually communicative but since this afternoon she is not responding as she normally does. She is presently treated for urinary tract infection. No history of fever or chills denies any vomiting or diarrhea. MD complaint: altered mental status Onset (ago): day(s) Timing confirmed by: family member Severity: moderate Consistency of symptoms: unknown Related Data Home Medications Medication Instructions Recorded Confirmed acetaminophen [Tylenol] 650 mg PO Q4H PRN 12/04/19 02/10/20 atorvastatin 40 mg PO QPM 12/04/19 02/10/20 fluoxetine 20 mg PO DAILY 12/04/19 02/10/20 Xarelto 20 mg PO DAILY 12/05/19 02/10/20 ferrous sulfate [Iron (ferrous 325 mg PO DAILY 12/05/19 02/10/20 sulfate)] levothyroxine 125 mcg PO DAILY 12/05/19 02/10/20 loperamide 2 mg PO PRN PRN 12/05/19 02/10/20 magnesium hydroxide [Milk of 30 ml PO BID PRN 12/05/19 02/10/20 Magnesia] meclizine 25 mg PO TID 12/05/19 02/10/20 metoprolol tartrate 25 mg PO BID 12/05/19 02/10/20 multivitamin,za-dofn-homjjafp 1 tablet PO DAILY 12/05/19 02/10/20 pantoprazole 40 mg PO DAILY 12/05/19 02/10/20 buspirone 5 mg PO DAILY 02/10/20 02/10/20 memantine 5 mg PO DAILY 02/10/20 02/10/20 amlodipine 2.5 mg tablet 2.5 mg PO DAILY 08/14/20 artifi.tears(hypromellose)(PF) 0.3 1 drp EACH EYE TID 08/14/20 % eye drops oxygen-air delivery systems #1 08/14/20 Allergies Allergy/AdvReac Type Severity Reaction Status Date / Time adenosine Allergy Severe Dyspnea / Verified 05/03/21 17:32 SOB Sulfa (Sulfonamide Allergy Unknown Unknown Verified 05/03/21 17:32 Antibiotics) Review of Systems Review of Systems: ROS unobtainable: Yes unobtainable due to mental status [facility] Past Medical History Medical History Alzheimer's dementia Atrial fibrillation per [place] records Chronic gastric ulcer without hemorrhage and without perforation Constipation COPD (chronic obstructive pulmonary disease) Cough Dementia Diarrhea Dry eye syndrome Dysphagia Gastro-esophageal reflux disease without esophagitis Generalized anxiety disorder H/O: stroke Per [place] notes History of urinary tract infection HTN (hypertension) Hyperlipidemia Hypothyroidism Iron (Fe) deficiency anemia LBBB (left bundle branch block) Legal blindness, as defined in [place] Other chest pain Other malaise Paroxysmal atrial fibrillation Personal history of COVID-19 Personal history of pulmonary embolism Polyosteoarthritis Sick sinus syndrome Unspecified psychosis not due to a substance or known physiological condition Surgical History Surgical History History of appendectomy Family History Family History Father Heart disease Cerebrovascular accident Mother Heart disease Diabetes mellitus Other Unknown family medical history Social History Social History Social History: Lives at a prison. Smoking status: Former smoker Alcohol intake: unknown Substance use: unknown Substance use type: does not use Gender identity (if verbalized by the patient): Female Spiritual care concerns: No Exam Narrative: GENERAL: Well-appearing, and in no acute distress. HEAD: Normocephalic, atraumatic. EYES: blind NECK: Supple. CHEST: Clear to auscultation. No respiratory distress. HEART: Regular
[2021-05-03 22:35] VITALS: BP 125/70; PULSE 61; RESP 18; O2SAT 100
== END 2021-05-03 23:52 ==
PROVIDERS: Emergency Provider Family Medicine; PCP Family Medicine
DX: R40.4 Transient alteration of awareness (principal); N39.0 Urinary tract infection, site not specified; G30.9 Alzheimer's disease, unspecified; F02.80 Dementia in other diseases classified elsewhere, unspecified severity, without behavioral disturbance, psychotic disturbance, mood disturbance, and anxiety; I48.91 Unspecified atrial fibrillation; J44.9 Chronic obstructive pulmonary disease, unspecified; I10 Essential (primary) hypertension; E03.9 Hypothyroidism, unspecified; F41.9 Anxiety disorder, unspecified; M19.90 Unspecified osteoarthritis, unspecified site; Z86.16 Personal history of COVID-19
CPT/HCPCS: 36415; 51701; 70450; 71045; 80053; 81001; 82948; 84484; 85025; 85610; 87040; 87086; 96372; 99284; J0696

== ENCOUNTER 2021-06-27 19:00 | Inpatient (IN) | payer MEDICARE, SELFPAY ==
--- NOTE | ~2021-06-27 | XR_ITS ---
XR chest 1V DATE: 06/27/2021 20:07 INDICATION: Choking while eating tonight. Atrial fibrillation, COPD, Covid TECHNIQUE: Portable AP chest on 06/27/2021 at 1951 hours COMPARISON: 05/03/2021 AP chest FINDINGS: Heart size appears within normal limits. There is aortic calcification, ectasia and unfoldi ng. Mild bilateral apical capping. There is mild patchy infiltrate primarily in the right upper lung and both lower lung zones. Differen tial diagnosis includes bilateral pneumonia,, pulmonary edema, aspiration pneumonitis. Multiple surgical clips overlie the upper mid abdomen. IVC filter device. Prominent diffuse osteopenia. Status post left shoulder arthroplasty. IMPRESSION: Patchy bilateral pulmonary infiltrates; differential diagnosis includes pneumonia, pulmon edgardo edema, aspiration pneumonitis Reviewed, dictated and finalized at location A. EAST ARCHEOLOGY PROFESSOR IMPRESSION: Patchy bilateral pulmonary infiltrates; differential diagnosis incl udes pneumonia, pulmonary edema, aspiration pneumonitis
--- NOTE | ~2021-06-27 | XR_ITS ---
MODIFIED ESOPHAGRAM HISTORY: Witnessed choking. Pneumonia. TECHNIQUE: Modified barium esophagram was performed on 06/28/2021. I administered fluoroscopy and perf ormed the exam with speech pathologist. Patient was seated for lateral fluoroscopic imaging for myla stion of thin liquids, pudding, solids and quantified amounts, followed by thin liquids in uncontroll ed amounts. This was recorded on tape. A single fluoroscopic spot image was also recorded. The DAP fo r this procedure was 2.196 Gycm2. The amount of fluoroscopy time used during this procedure was 3.3 m inutes. FINDINGS: Oral stage: Intermittent uncontrolled bolus with posterior spillage.. Pharyngeal stage: Reduced laryngeal elevation. There is trace laryngeal penetration without aspiratio n. Mild residue in the vallecula and piriform sinus. Cervical/esophageal stage: Adequate function. IMPRESSION: Trace laryngeal penetration without aspiration. Please correlate with speech pathologist findings and specific feeding recommendations. Reviewed, dictated and finalized at location A. TILE SETTER IMPRESSION: Trace laryngeal penetration without aspiration. Please correlate w agnes speech pathologist findings and specific feeding recommendations.
[2021-06-27 19:10] VITALS: BP 133/66; PULSE 54; RESP 20; TEMP 36.4; O2SAT 92
--- NOTE | 2021-06-27 19:46 | ED.GENADULT ---
HPI - General Adult General Chief complaint: Unspecified Stated complaint: choked on brocolli at dinner Time Seen by Provider: 06/27/21 19:26 Source: patient, EMS and RN notes reviewed Mode of arrival: EMS Limitations: no limitations History of Present Illness HPI narrative: Patient is 85 years old white female brought to the emergency room by ambulance from [facility] care unit because of choking while eating broccoli, Rachel maneuver was done, patient came back to normal within few seconds. The daughter who came with the patient is telling me that patient had similar symptoms 1 year ago, was choked on a piece of meat because could not chew well. Subsequently patient started on pur?ed diet with extensive work-up to rule out the possibility of stroke, swallowing disorder with negative result.. Currently patient is awake, alert oriented to her name and age only, denying any symptoms just would like to go back home to sleep. The daughter who have the power of litigation attorney is telling me that patient is DNR. Related Data Home Medications Medication Instructions Recorded Confirmed acetaminophen [Tylenol] 650 mg PO Q4H PRN 12/04/19 02/10/20 atorvastatin 40 mg PO QPM 12/04/19 02/10/20 fluoxetine 20 mg PO DAILY 12/04/19 02/10/20 Xarelto 20 mg PO DAILY 12/05/19 02/10/20 ferrous sulfate [Iron (ferrous 325 mg PO DAILY 12/05/19 02/10/20 sulfate)] levothyroxine 125 mcg PO DAILY 12/05/19 02/10/20 loperamide 2 mg PO PRN PRN 12/05/19 02/10/20 magnesium hydroxide [Milk of 30 ml PO BID PRN 12/05/19 02/10/20 Magnesia] meclizine 25 mg PO TID 12/05/19 02/10/20 metoprolol tartrate 25 mg PO BID 12/05/19 02/10/20 multivitamin,vs-byny-afqwvkir 1 tablet PO DAILY 12/05/19 02/10/20 pantoprazole 40 mg PO DAILY 12/05/19 02/10/20 buspirone 5 mg PO DAILY 02/10/20 02/10/20 memantine 5 mg PO DAILY 02/10/20 02/10/20 amlodipine 2.5 mg tablet 2.5 mg PO DAILY 08/14/20 artifi.tears(hypromellose)(PF) 0.3 1 drp EACH EYE TID 08/14/20 % eye drops oxygen-air delivery systems #1 08/14/20 Allergies Allergy/AdvReac Type Severity Reaction Status Date / Time adenosine Allergy Severe Dyspnea / Verified 06/27/21 19:12 SOB Sulfa (Sulfonamide Allergy Unknown Unknown Verified 06/27/21 19:12 Antibiotics) Review of Systems Review of Systems: CONSTITUTIONAL: Denies fever, chills, or sweats. EYES: Denies visual changes, redness, or discharge. ENT: Denies rhinorrhea, congestion, sore throat, or otalgia. CARDIOVASCULAR: Denies chest pain, palpitations, or edema. RESPIRATORY: Denies cough or dyspnea. GASTROINTESTINAL: Denies abdominal pain, nausea, vomiting, or diarrhea. GENITOURINARY: Denies dysuria or hematuria. SKIN: Denies rash or itching. MUSCULOSKELETAL: Denies back pain, joint pain, or myalgia. NEUROLOGIC: Denies headache, numbness, or weakness. PSYCHIATRIC: Denies anxiety or depression. FOR[facility]LY [facility] Past Medical History Medical History Alzheimer's dementia Atrial fibrillation per [place] records Chronic gastric ulcer without hemorrhage and without perforation Constipation COPD (chronic obstructive pulmonary disease) Cough Dementia Diarrhea Dry eye syndrome Dysphagia Gastro-esophageal reflux disease without esophagitis Generalized anxiety disorder H/O: stroke Per [place] notes History of urinary tract infection HTN (hypertension) Hyperlipidemia Hypothyroidism Iron (Fe) deficiency anemia LBBB (left bundle branch block) Legal blindness, as defined in [place] Other chest pain Other malaise Paroxysmal atrial fibrillation Personal history of COVID-19 Personal history of pulmonary embolism Polyosteoarthritis Sick sinus syndrome Unspecified psychosis not due to a substance or known physiological condition Surgical History Surgical History History of appendectomy Family History Family History Fa
[2021-06-27 20:48] LABS: Alveolar/Arterial O2 Gradient 44.5 mmHg; Base Excess ABG -1.5 mEq/l (+/-2.0); Fractional Inspired Oxygen 21 %; HCO3 ABG 23.1 mEq/l (22.0-26.0); Oxygen Content ABG 18.8 %vol (16.0-22.0); Oxygen Saturation ABG 90.3 % (95.0-100.0); Oxyhemoglobin 89.4 % THb (90.0-100.0); PCO2 ABG 38.9 mmHg (35.0-45.0); PO2 ABG 58.6 mmHg (80.0-100.0); PO2 FiO2 Ratio Arterial Blood 2.79 %; pH ABG 7.392 (7.350-7.450)
[2021-06-27 20:49] LABS: Device ROOM AIR; Modified Allen's Test Pass; Site Drawn RIGHT RADIAL
[2021-06-27 20:53] LABS: Basophils Absolute Auto 0.1 K/mm3 (0.0-0.1); Basophils Percent Auto 0.6 % (0.2-1.2); Eosinophils Absolute Auto 0.4 K/mm3 (0-0.3); Eosinophils Percent Auto 4.3 % (0-4.4); Hematocrit 45.8 % (37.0-47.0); Hemoglobin 14.6 g/dL (12.0-15.0); Immature Granulocyte Absolute 0.03 K/mm3 (0.00-0.031); Immature Granulocyte Percent A 0.3 % (0-0.5); Lymphocytes Percent Auto 22.1 % (18.3-44.2); Mean Corpuscular HGB Conc 31.9 g/dl (32-36); Mean Corpuscular Hemoglobin 32.4 pg (26-34); Mean Corpuscular Volume 101.8 fl (80-100); Mean Platelet Volume 10.1 fl (7.4-10.4); Monocytes Absolute Auto 1.2 K/mm3 (0.1-0.6); Monocytes Percent Auto 13.3 % (2.6-8.5); Neutrophils Absolute Auto 5.4 K/mm3 (1.3-6.7); Neutrophils Percent Auto 59.4 % (45.5-73.1); Platelet Count Result 229 k/mm3 (150-375); Red Cell Distribution Width 13.1 % (11.5-14.5)
[2021-06-27 21:05] LABS: Alanine Aminotransferase 22 U/L (4-35); Albumin Level 4.1 g/dL (3.5-5.1); Alkaline Phosphatase 105 U/L (38-126); Anion Gap 7 mmol/L (8-16); Aspartate Amino Transferase 36 U/L (14-36); Bilirubin,Total 0.3 mg/dL (0.2-1.3); Blood Urea Nitrogen 25 mg/dL (7-17); Calcium 9.2 mg/dL (8.4-10.2); Carbon Dioxide 22 mmol/L (22-30); Chloride 109 mmol/L (98-107); Estimated CRCL calculation 33 ml/min; Estimated Glomerular Filt Rate > 60; Glucose 105 mg/dL (65-110); Potassium 4.4 mmol/L (3.4-5.0); Sodium 138 mmol/L (137-145)
[2021-06-27 21:12] LABS: NT Pro B Type Natriuretic Pept 1130 pg/mL (5-100)
[2021-06-27 21:54] VITALS: BP 108/56; PULSE 52; RESP 18; O2SAT 91
[2021-06-27 22:28] LABS: SARS-CoV-2 RNA PCR Negative
[2021-06-27] MEDS: AMPICILLIN SULB 3 GM/NS 100 ML 3 GM/100 ML VIAL IVPB (22:44)
[2021-06-27 22:47] VITALS: BP 115/52; PULSE 55; RESP 18; O2SAT 93
[2021-06-28] VITALS (31 sets, daily range): BP systolic 114–157; BP diastolic 60–104; PULSE 50–102; RESP 16–20; TEMP 36.8–37.2; O2SAT 91–100; BMI 21.7
--- NOTE | 2021-06-28 00:45 | PM.IMHP ---
H&P: HPI History of Present Illness Date/Time: 06/28/21 00:45 Chief Complaint: Choked on broccoli Narrative: 85-year-old female with a past medical history of COPD, dementia, hypertension, CVA, bilateral pulmonary embolism, SVT and prior intracranial bleed who presented to the ER from the memory care unit via EMS with an episode of choking on broccoli and received a Heimlich maneuver. The patient has been hospitalized in January of 2020 for a similar episode. She had a swallow eval at that time and had been discharged on pureed diet. Evidently after speech therapy the patient's swallow function had improved and patient was advanced back to a regular diet. The patient's daughter was her power of furnace loader was at the bedside in the ER and stated that the patient looked like she was in her usual health. The patient had recently been treated for UTI at the correction with Augmentin and completed antibiotic therapy on the after a 14 day course. Daughter does not think that the patient is any respiratory distress. The patient's oxygen saturations were in the 90-92% range in the ER. She does have a history of prior hypoxic respiratory failure. She is not having any cough or shortness of breath in the ER. She is vaccinated against COVID. Patient was alert orient to person, place and month at the time of my evaluation but was confused as to the year. S the evening progressed the patient became more confused and anxious and continue to call out for help to the nursing staff. Nursing staff conversed with correction nurses who reported that this is the patient's usual behavior and she usually responds to Ativan. Review of Systems Review of Systems: Review of systems was limited due to the patient's dementia. She denied having any pain, shortness of breath or fever and she could not remember why she was brought to the ER. [facility] Past Medical History Medical History (Updated 06/28/21 @ 06:03 by Sarah Harris DO) Alzheimer's dementia Constipation COPD (chronic obstructive pulmonary disease) CVA (cerebral vascular accident) (~2017) CT evidence of small bilateral old lacunar periventricular infarcts; wheelchair-bound since 2017 Dementia Dry eye syndrome Dysfunctional uterine bleeding Dysphagia Gastro-esophageal reflux disease without esophagitis Generalized anxiety disorder History of urinary tract infection HTN (hypertension) Hyperlipidemia Hypothyroidism Intracranial bleed Iron (Fe) deficiency anemia LBBB (left bundle branch block) Legal blindness, as defined in [place] Osteoporosis Other chest pain Other malaise Paroxysmal atrial fibrillation Echocardiogram 2017 demonstrated EF 57% with atrial septal aneurysm Perforated gastric ulcer Personal history of COVID-19 (~07/2020) Pfizer booster February 2021 Personal history of pulmonary embolism Polyosteoarthritis Senile dementia with psychosis Sick sinus syndrome Uterine fibroid Surgical History Surgical History (Updated 06/28/21 @ 06:03 by Sarah Harris DO) History of appendectomy History of arthroplasty of left shoulder History of pyloroplasty (~2009) S/P IVC filter Status post cataract extraction of both eyes with insertion of intraocular lens Family History Family History (Updated 06/28/21 @ 00:46 by Sarah Harris DO) Father Heart disease Cerebrovascular accident Mother Heart disease Diabetes mellitus Social History Social History Social History: Lives at a correction. Smoking status: Former smoker Alcohol intake: unknown Substance use: unknown Substance use type: does not use Gender identity (if verbalized by the patient): Female Spiritual care concerns: No Meds Home Medications and Allergies Home Medications Medication Instructions Recorded Confirmed Type acetaminophen [Tylenol] 650 mg PO Q8H PRN 12/04/19 06/28/21 History atorvastatin 40 mg PO
[2021-06-28] MEDS: ALBUTEROL SULFATE NEB 2.5 MG/0.5 ML INH 5 MG INHALATION ×4 (02:06→20:40)
[2021-06-28] MEDS: AMPICILLIN SULB 3 GM/NS 100 ML 3 GM/100 ML VIAL IVPB ×4 (05:03→21:50)
[2021-06-28] MEDS: LORazepam INJ (*CRX) 2 MG/ML VIAL 0.5 MG IV PUSH ×2 (05:32→18:46)
[2021-06-28] MEDS: LEVOTHYROXINE SODIUM INJ 100 MCG/5 ML VIAL 62.5 MCG IV PUSH (06:21)
--- NOTE | 2021-06-28 06:29 | PC.NURSE ---
Pt 90-91% on room air while sleeping. Placed on 2L NC at this time. 98%.
--- NOTE | 2021-06-28 07:29 | PC.NURSE ---
Assumed care of Pt from ANDREA Flores. Pt confused at this time. resting on stretcher. Place pt on bed alarm as precaution
[2021-06-28] MEDS: ARTIFICIAL TEARS OPHTH SOLN 15 ML BOTTLE 1 DROP EACH EYE ×3 (08:46→21:59)
--- NOTE | 2021-06-28 11:11 | PM.IMPN ---
Progress Note: A&P Assessment and Plan (1) Choking episode: Code(s): R09.89 - Other specified symptoms and signs involving the circulatory and respiratory systems Status: Acute (2) Aspiration into lower respiratory tract: Qualifiers: Encounter type: initial encounter Qualified Code(s): T17.800A - Unspecified foreign body in other parts of respiratory tract causing asphyxiation, initial encounter Code(s): T17.800A - Unspecified foreign body in other parts of respiratory tract causing asphyxiation, initial encounter Status: Acute (3) Pneumonia: Qualifiers: Laterality: unspecified laterality Lung location: unspecified part of lung Pneumonia type: due to unspecified organism Qualified Code(s): J18.9 - Pneumonia, unspecified organism Code(s): J18.9 - Pneumonia, unspecified organism Status: Acute (4) Dementia: Qualifiers: Dementia behavioral disturbance: without behavioral disturbance Dementia type: unspecified type Qualified Code(s): F03.90 - Unspecified dementia without behavioral disturbance Code(s): F03.90 - Unspecified dementia without behavioral disturbance Status: Chronic (5) DVT prophylaxis: Code(s): Z29.9 - Encounter for prophylactic measures, unspecified Status: Acute Additional Plan Patient has been admitted to the medical floor. She does have a history of dysphagia. Currently NPO. Currently on Levaquin and Unasyn. Will stop Levaquin continue Unasyn. Home medications are on hold given NPO status. Speech therapy to evaluate and treat with a modified barium swallow. Once this result is complete, will discuss with family. Patient may be intermittently aspirating to explain the more chronic findings on the x-ray. CHF exacerbation less likely. She is on minimal oxygen. Continue wean oxygen as tolerated. Resume home medications if she is able to swallow safely. Hopefully she will be able to resume oral diet with modifications. Macrocytosis noted. Will check B12 level. BUN elevated so some concern for dehydration. Will check UA to exclude UTI. Continue Unasyn. SCDs for DVT prophylaxis. Subjective Date/time seen: 06/28/21 11:12 Interval history: 85yo female with COPD and dementia here for aspiration. Patient is alert but confused. She denies any shortness of breath or chest pain. No coughing. No nausea or vomiting. Denies sore throat. History is suspect however. Review of Systems Review of Systems: ROS unobtainable: Yes unobtainable due to mental status Exam Narrative: AF 97.6 114/62 80 18 94% 1/2L Gen - NARD Chest - few dry crackles, nml RR CV - RRR S1/S2 Abd - Soft, NT/ND, Positive BS Ext - No pedal edema. 2nd right toe amp Neuro - Alert but confused Psych - Nml mood and affect Skin - Warm and dry Objective Data Vital Signs Vital Signs: Vital Signs - 24 hr 06/27/21 19:10 06/27/21 21:54 06/27/21 22:47 Temperature 97.6 F Pulse Rate 54 L 52 L 55 L Respiratory Rate 20 18 18 Blood Pressure 133/66 108/56 L 115/52 L Pulse Oximetry 92 91 93 06/28/21 02:03 06/28/21 02:04 06/28/21 02:06 Temperature Pulse Rate 54 L 54 L Respiratory Rate 16 18 Blood Pressure Pulse Oximetry 100 06/28/21 03:42 06/28/21 03:43 06/28/21 03:45 Temperature Pulse Rate Respiratory Rate Blood Pressure 132/60 Pulse Oximetry 94 91 92 06/28/21 03:46 06/28/21 04:00 06/28/21 04:01 Temperature Pulse Rate Respiratory Rate Blood Pressure 137/67 121/104 H Pulse Oximetry 92 96 91 06/28/21 04:15 06/28/21 04:16 06/28/21 04:30 Temperature Pulse Rate Respiratory Rate Blood Pressure 157/73 H Pulse Oximetry 100 94 94 06/28/21 04:31 06/28/21 06:22 06/28/21 06:29 Temperature Pulse Rate 65 Respiratory Rate 18 Blood Pressure 137/72 155/71 H Pulse Oximetry 95 93 100 06/28/21 09:39 06/28/21 10:19 06/28/21 10:20 Temperature Pulse Rate 5
--- NOTE | 2021-06-28 14:49 | ADMGEN ---
This patient, Kinjal Anderson, was admitted to [facility] Room 324-01 at 1410. Patient/family oriented to hospital policies and general routines including ID bracelet, bed and alarms, visiting hours, pain management, procedures, bathroom and other care routines, personal items, smoking policy, room service/diet, and visiting hours. Information on how to activate the Rapid Response Team has been discussed. Patient/Family are encouraged to report perceived risks to care and to ask questions if they do not understand what they are told or what they should do.
[2021-06-28 21:33] LABS: Add Urine Microscopic? YES; Appearance Urine Cloudy (Clear); Bacteria Urine Trace /hpf; Bilirubin Urine Negative (Negative); Blood Urine Negative (Negative); Color Urine Yellow (Yellow); Glucose Urine UA Negative (Negative); Ketones Urine Negative (Negative); Leukocyte Esterase Ur 3+ LEU/UL (Negative); Nitrate Urine Negative (Negative); Protein Urine 1+ mg/dL (Negative); Specific Grav Ur 1.013 (1.001-1.035); Squamous Epithelial Cell Urine Rare /hpf (Few); Urobilinogen Urine Negative mg/dL (<2.0); WBC Urine >75 /hpf
[2021-06-29] VITALS (9 sets, daily range): BP systolic 120–170; BP diastolic 60–78; PULSE 65–98; RESP 14–18; TEMP 36.6–36.9; O2SAT 90–92
[2021-06-29] MEDS: busPIRone HCL 10 MG TABLET PO ×2 (01:23→15:57)
[2021-06-29] MEDS: LORazepam (*CRX) 0.5 MG TABLET PO (01:23)
[2021-06-29] MEDS: ALBUTEROL SULFATE NEB 2.5 MG/0.5 ML INH 5 MG INHALATION (03:00)
[2021-06-29] MEDS: AMPICILLIN SULB 3 GM/NS 100 ML 3 GM/100 ML VIAL IVPB ×4 (05:25→22:13)
[2021-06-29] MEDS: LEVOTHYROXINE SODIUM 125 MCG TABLET PO (05:30)
[2021-06-29 07:07] LABS: Anion Gap 7 mmol/L (8-16); Blood Urea Nitrogen 14 mg/dL (7-17); Calcium 9.1 mg/dL (8.4-10.2); Carbon Dioxide 22 mmol/L (22-30); Chloride 112 mmol/L (98-107); Estimated CRCL calculation 52 ml/min; Estimated Glomerular Filt Rate > 60; Glucose 119 mg/dL (65-110); Potassium 3.7 mmol/L (3.4-5.0); Sodium 141 mmol/L (137-145)
[2021-06-29 08:05] LABS: Folic Acid 12.4 ng/mL (2.76->20); Vitamin B12 > 1000.0 pg/mL (239-931)
--- NOTE | 2021-06-29 10:27 | PCSTNOTE ---
Please refer to the Modified Barium Swallow Evaluation in the EMR.
--- NOTE | 2021-06-29 10:58 | PM.IMPN ---
Progress Note: A&P Assessment and Plan (1) Choking episode: Code(s): R09.89 - Other specified symptoms and signs involving the circulatory and respiratory systems Status: Acute (2) Aspiration into lower respiratory tract: Qualifiers: Encounter type: initial encounter Qualified Code(s): T17.800A - Unspecified foreign body in other parts of respiratory tract causing asphyxiation, initial encounter Code(s): T17.800A - Unspecified foreign body in other parts of respiratory tract causing asphyxiation, initial encounter Status: Acute (3) Pneumonia: Qualifiers: Laterality: unspecified laterality Lung location: unspecified part of lung Pneumonia type: due to unspecified organism Qualified Code(s): J18.9 - Pneumonia, unspecified organism Code(s): J18.9 - Pneumonia, unspecified organism Status: Acute (4) Dementia: Qualifiers: Dementia type: unspecified type Dementia behavioral disturbance: without behavioral disturbance Qualified Code(s): F03.90 - Unspecified dementia without behavioral disturbance Code(s): F03.90 - Unspecified dementia without behavioral disturbance Status: Chronic (5) DVT prophylaxis: Code(s): Z29.9 - Encounter for prophylactic measures, unspecified Status: Acute Additional Plan Patient has been admitted to the medical floor. She does have a history of dysphagia. Currently NPO. Currently on Levaquin and Unasyn. Will stop Levaquin continue Unasyn. Home medications are on hold given NPO status. Speech therapy to evaluate and treat with a modified barium swallow. Once this result is complete, will discuss with family. Patient may be intermittently aspirating to explain the more chronic findings on the x-ray. CHF exacerbation less likely. She is on minimal oxygen. Continue wean oxygen as tolerated. Resume home medications if she is able to swallow safely. Hopefully she will be able to resume oral diet with modifications. Macrocytosis noted. Will check B12 level. BUN elevated so some concern for dehydration. Will check UA to exclude UTI. Continue Unasyn. SCDs for DVT prophylaxis. 06/29/21: ST evaluation showing that patient able to swallow safely. Home medications resumed last night once swallow study results known. She will be started on oral diet today with aspiration precautions. Stop IV Ativan. Increase activity. Continue Speech therapy. Add PT/OT. She is off O2 (but wears 2-3L prn at the facility). Change nebs to prn. BCx NGTD. UCx pending. Continue Unasyn. Change scheduled Ativan to prn for now until she is more awake (she does take this scheduled according to the [place] list). Subjective Date/time seen: 06/29/21 10:58 Interval history: 85yo female with COPD and dementia here for aspiration. Patient is alert but confused. She denies any shortness of breath or chest pain but does have right flank chest pain that is painful to palpate. History is suspect however. Exam Narrative: AF 97.8 140/60 96 16 92% RA Gen - NARD lying almost flat in bed Chest - clear anteriorly and in the flanks. tender right flank pain just below the right axilla. No bruising or rash noted . No crepitus CV - RRR S1/S2 with 2/6 systolic murmur sternal border. Abd - Soft, NT/ND, Positive BS Ext - No pedal edema Neuro - Alert but confused Psych - asleep but arouses easily. Skin - Warm and dry Objective Data Vital Signs Vital Signs: Vital Signs - 24 hr 06/28/21 11:21 06/28/21 11:45 06/28/21 14:24 Temperature Pulse Rate 50 L Respiratory Rate 16 Blood Pressure Pulse Oximetry 95 94 06/28/21 14:36 06/28/21 14:43 06/28/21 20:40 Temperature 98.2 F Pulse Rate 52 L 57 L 56 L Respiratory Rate 18 20 18 Blood Pressure 146/86 H Pulse Oximetry 95 06/28/21 20:47 06/28/21 21:50 06/29/21 03:01 Temperature 98.9 F Pulse Rate 61 102 H 66 Respiratory Rate 18 18 18 Blood Pressure 152/85 H Pulse Oxim
--- NOTE | 2021-06-29 12:35 | PC.NURSE ---
Daughter, Jany, called to inform us Ivanna Garza treated the patient for reoccurring UTIs; 05-18-21 (14 days) Macrobid, then 06/08/21 (14 days) Augmentin 875. Prior to hospitalization, on 06/25, patient's UA was positive for UTI again.
--- NOTE | 2021-06-29 14:49 | PCOTNOTE ---
Attempted to see pt. for occupational therapy evaluation. Pt. refused due to fatigue, and nurse reports pt. has significant confusion at this time.
[2021-06-29] MEDS: ARTIFICIAL TEARS OPHTH SOLN 15 ML BOTTLE 1 DROP EACH EYE ×3 (15:56→22:13)
--- NOTE | 2021-06-29 16:36 | PC.NURSE ---
On 06/29/21, the student, [ Jovita Guo], provided care and completed [facility] documentation on this patient. I have reviewed the student's documentation and agree with the findings.
[2021-06-29] MEDS: RIVAROXABAN 15 MG TABLET PO (16:54)
[2021-06-29] MEDS: METOPROLOL TARTRATE 25 MG TABLET PO (22:13)
[2021-06-30] MEDS: AMPICILLIN SULB 3 GM/NS 100 ML 3 GM/100 ML VIAL IVPB (05:04)
[2021-06-30 05:58] VITALS: BP 160/80; PULSE 60; RESP 16; TEMP 36.6; O2SAT 91
[2021-06-30] MEDS: LEVOTHYROXINE SODIUM 125 MCG TABLET PO (06:02)
[2021-06-30 08:00] VITALS: O2SAT 93
[2021-06-30 09:27] VITALS: PULSE 60
[2021-06-30] MEDS: PANTOPRAZOLE 40 MG TABLET PO (09:27)
[2021-06-30] MEDS: busPIRone HCL 10 MG TABLET PO (09:27)
[2021-06-30] MEDS: FLUoxetine HCL 20 MG CAPSULE PO (09:27)
[2021-06-30] MEDS: METOPROLOL TARTRATE 25 MG TABLET PO (09:27)
[2021-06-30] MEDS: amLODIPine BESYLATE 2.5 MG TABLET PO (09:29)
[2021-06-30] MEDS: ARTIFICIAL TEARS OPHTH SOLN 15 ML BOTTLE 1 DROP EACH EYE (09:29)
--- NOTE | 2021-06-30 10:18 | PCOTNOTE ---
Spoke with Physical therapist who reports patient is dependent at baseline and per Dr. Castillo is agreeable to discharging patient from Occupational Therapy. Will Discharge from OT at this time.
--- NOTE | 2021-06-30 11:00 | PM.DS ---
DS: Admitting Diagnosis Discharge Date 06/30/21 Admitting Diagnosis Choking episode DS: Discharge Diagnosis Discharge Diagnosis (1) Choking episode: Code(s): R09.89 - Other specified symptoms and signs involving the circulatory and respiratory systems Status: Acute (2) Aspiration into lower respiratory tract: Qualifiers: Encounter type: initial encounter Qualified Code(s): T17.800A - Unspecified foreign body in other parts of respiratory tract causing asphyxiation, initial encounter Code(s): T17.800A - Unspecified foreign body in other parts of respiratory tract causing asphyxiation, initial encounter Status: Acute (3) Pneumonia: Qualifiers: Laterality: unspecified laterality Lung location: unspecified part of lung Pneumonia type: due to unspecified organism Qualified Code(s): J18.9 - Pneumonia, unspecified organism Code(s): J18.9 - Pneumonia, unspecified organism Status: Acute (4) Dementia: Qualifiers: Dementia type: unspecified type Dementia behavioral disturbance: without behavioral disturbance Qualified Code(s): F03.90 - Unspecified dementia without behavioral disturbance Code(s): F03.90 - Unspecified dementia without behavioral disturbance Status: Chronic DS: Summary Hospital Course Reason for hospitalization: 85yo female with COPD and dementia here for aspiration. Please see H&P for details Hospital Course: Patient presented to the ER from the memory care unit via EMS with an episode of choking on broccoli and received a Heimlich maneuver. The patient has been hospitalized in January of 2020 for a similar episode. She had a swallow eval at that time and had been discharged on pureed diet. Evidently after speech therapy the patient's swallow function had improved and patient was advanced back to a regular diet. The patient's oxygen saturations were in the 90-92% range in the ER. She does have a history of prior hypoxic respiratory failure and has O2 prn at the facility. She is vaccinated against COVID. Patient was admitted to the medical floor. She was made NPO. CXR showing patchy bilateral pulmonary infiltrates. BNP 1100 but felt not likely CHF. She was started on Unasyn. Home medications were held given NPO status. Speech therapy evaluated the patient with a modified barium swallow. Once this result was complete, we started appropriate diet with aspiration precautions. We resumed home medications. Macrocytosis noted but normal B12/Folate level; monocytosis noted noted intermittently in the past but normal WBC. BUN elevated so some concern for dehydration. UA noted but UCx negative. She had clinical improvement. She was able to be discharged back to the facility on 06/30/21 Status at Discharge Cognitive/behavioral status at discharge: Stable Time Spent with Patient Time attestation: Total time spent providing and/or coordinating discharge services: 38 minutes Time spent: Greater than 30 minutes Specific discharge activities: Discussed with daughter. hospital course and follow-up plan reviewed. All questions were answered. Exam Narrative: AF 97.8 160/80 60 16 91% RA Gen - NARD lying almost flat in bed Chest - few inspiratory rhonchi in the flanks, clear anteriorly. No right flan pain CV - RRR S1/S2 Abd - Soft, NT/ND, Positive BS Ext - No pedal edema Neuro - Alert but confused. Skin - Warm and dry DS: Data Data Completed and Pending Labs on day of discharge: Preliminary micro results at discharge 06/27/21 22:12 Blood Culture - Preliminary Blood 06/27/21 22:12 Blood Culture - Preliminary Blood Discharge Plan Discharge Attending physician on discharge: Alexys Castillo Discharging Clinician: Alexys Castillo Anticipated Discharge Date/Time: 06/30/21 11:15 Patient Disposition: NH Residential/Asst Living Activity: as tolerated Diet: other - see discharge instructions
--- NOTE | 2021-06-30 11:31 | PCSTNOTE ---
Patient did not respond to therapist's attempts/cues to complete exercises. Initially, she answered a couple of questions but became nonverbal and did not attempt to imitate exercises.
[2021-06-30 14:10] LABS: EDCOVIDSCREEN Negative (Negative)
[2021-06-30 14:59] VITALS: BP 153/62; PULSE 51; RESP 16; TEMP 36.4; O2SAT 54
== END 2021-06-30 17:35 | DRG 178 ==
LOC: ANHED 19:55 → ANH3MEDSUR 22:06
PROVIDERS: Admitting Provider Internal Medicine; Emergency Provider Emergency Medicine; PCP Family Medicine; Visit Provider Internal Medicine
DX: J69.0 Pneumonitis due to inhalation of food and vomit (principal); T17.820A Food in other parts of respiratory tract causing asphyxiation, initial encounter; G30.9 Alzheimer's disease, unspecified; F02.80 Dementia in other diseases classified elsewhere, unspecified severity, without behavioral disturbance, psychotic disturbance, mood disturbance, and anxiety; H04.129 Dry eye syndrome of unspecified lacrimal gland; K21.9 Gastro-esophageal reflux disease without esophagitis; F41.1 Generalized anxiety disorder; R13.10 Dysphagia, unspecified; E78.5 Hyperlipidemia, unspecified; E03.9 Hypothyroidism, unspecified; D50.9 Iron deficiency anemia, unspecified; I44.7 Left bundle-branch block, unspecified; H54.8 Legal blindness, as defined in USA; J44.9 Chronic obstructive pulmonary disease, unspecified; Z20.822 Contact with and (suspected) exposure to COVID-19; I48.0 Paroxysmal atrial fibrillation; M15.9 Polyosteoarthritis, unspecified; I49.5 Sick sinus syndrome; M81.0 Age-related osteoporosis without current pathological fracture; E86.0 Dehydration; Z96.612 Presence of left artificial shoulder joint; Z86.73 Personal history of transient ischemic attack (TIA), and cerebral infarction without residual deficits; Z86.16 Personal history of COVID-19; Z86.711 Personal history of pulmonary embolism; Z90.49 Acquired absence of other specified parts of digestive tract; Z87.891 Personal history of nicotine dependence; Z98.42 Cataract extraction status, left eye; Z98.41 Cataract extraction status, right eye
CPT/HCPCS: 36415; 36600; 71045; 80048; 80053; 81001; 82607; 82746; 82805; 83880; 85025; 87040; 87086; 87426; 92611; 94640; 96365; 96366; 96375; 97162; 99285; A9270; C9803; G0378; J0295; J2060; U0003; U0005